=== PATIENT | male | born 1965 | race Caucasian/White ===

== ENCOUNTER 2021-10-04 09:09 | Inpatient (IN) | payer SELFPAY ==
[2021-10-04] MEDS ORDERED: Dexamethasone 10 MG/ML SDV IVPUSH ONE (09:30)
[2021-10-04] MEDS ORDERED: Albuterol/Ipratropium 3.0-0.5 MG/3 ML Neb Soln NEB ONE ×3 (09:30→16:24)
[2021-10-04] MEDS ORDERED: Sodium Chloride 0.9% 2.5 ML Syringe FLUSH PRN (09:30)
[2021-10-04] MEDS ORDERED: Sodium Chloride 0.9% 10 ML Syringe FLUSH PRN (09:30)
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
[2021-10-04] MEDS ORDERED: Aspirin 81 MG Tab.Chew PO ONE (09:33)
[2021-10-04] MEDS ORDERED: Nitroglycerin 2% Oint 1 GM UD Packet TOP ONE (09:33)
[2021-10-04] MEDS ORDERED: Furosemide 40 MG/4 ML VIAL IVPUSH ONE ×2 (09:33→16:21)
[2021-10-04 10:09] LABS: BLOOD UREA NITROGEN,BUN 23 mg/dL (7.0-18.0); CARBON DIOXIDE,CO2 35.4 mmol/L (21.0-32.0); CHLORIDE,CL 107 mmol/L (98-107); GLUCOSE RANDOM 85 mg/dL (74-106); POTASSIUM,K 4.8 mmol/L (3.5-5.1); SODIUM,NA 145 mmol/L (136-148)
[2021-10-04 10:17] LABS: CORONAVIRUS COVID-19 NAA NEGATIVE (NEGATIVE); INFLUENZA A NAA NEGATIVE (NEGATIVE); INFLUENZA B NAA NEGATIVE (NEGATIVE)
--- NOTE | 2021-10-04 10:47 | CR ---
Indication: Shortness of breath. Technique: Chest 1 view. Comparison: None. Findings/Impression: Cardiovascular and mediastinum: Cardiomegaly present. Pulmonary vasculature is within normal limits. No other signs of heart failure. Lungs and pleural space: Lungs are clear. No sign of infiltrate or mass. No sign of pleural effusion. No pneumothorax. No specific finding to explain shortness of breath. Bones and soft tissues: No acute findings. Dictated by Norberto Dunn MD @ 10/04/2021 10:45:06 AM (Electronically Signed)
--- NOTE | 2021-10-04 10:51 | CT ---
Indication: Shortness of breath. Technique: CT pulmonary angiogram. Coronal/sagittal reconstruction images. 100 cc of Isovue 370 IV. Comparison: None. Findings: There is no mass at the thoracic inlet. There is no pleural or pericardial effusion. Cardiomegaly. The main pulmonary artery is dilated, and measures 38 millimeters in dimension. Consider pulmonary arterial hypertension. The ascending thoracic aorta measures 42 millimeters, which is dilated. There is no evidence for an acute aortic syndrome. No displaced intimal calcification dissection flap is seen. No mass at the thoracic inlet. No pulmonary emboli. The study is technically adequate for interpretation no thoracic lymphadenopathy. The lung windows demonstrate no endobronchial mass. No resorptive atelectasis. No honeycomb formation. There is no suspicious pulmonary nodule. There is no acute airspace disease Evaluation the upper abdomen demonstrates no splenomegaly. No pancreatic duct dilation or glandular atrophy. Nodular liver surface, which can be seen with cirrhosis. See the surface overlying segment II. No dilation of intrahepatic biliary radicals. There are bilateral adrenal nodules, which likely represent lipid rich adrenal adenomas. For example, 16 millimeter lesion in the left adrenal gland on image 245 of series 401. These measure less than 10 Hounsfield units. No suspicious bone lesions are seen. There is osteophytic spurring at the endplates of the thoracic spine. Vertebral body heights are maintained on sagittal reconstruction images. Impression: 1. No pulmonary emboli. 2. No evidence on CT for right heart strain. No pulmonary infarct. 3. Dilated main pulmonary artery, which may indicate pulmonary arterial hypertension. 4. Fusiform dilation of the ascending thoracic aorta. No evidence for an acute aortic syndrome. Please note that all CT scans at this facility use dose modulation, iterative reconstruction, and/or weight-based dosing when appropriate to reduce radiation dose to as low as reasonably achievable. Dictated by Shemar Hobbs MD @ 10/04/2021 10:49:00 AM (Electronically Signed)
[2021-10-04] MEDS ORDERED: niCARdipine/Normal Saline 40 MG/200 ML BAG IV SCH (11:00)
[2021-10-04] MEDS ORDERED: Iopamidol 755 MG/ML 500 ML Multipack Bottle IVPUSH ONE (11:13)
[2021-10-04] MEDS: niCARdipine/Normal Saline 20 MG/200 ML BAG IV SCH ×2 (12:51→18:01)
--- NOTE | 2021-10-04 14:53 | PCM.HP.2 ---
H&P History of Present Illness - General Date of Service: 10/04/21 Admit Problem/Dx: Admission Diagnosis/Problem Admission Diagnosis/Problem Respiratory failure with hypoxia - History of Present Illness Initial Comments - Free Text/Narative: Zaheer Recinos is a 56-year-old morbidly obese male with a h/o HTN, COPD, noncompliance with medications who presented to the ED by private means due for shortness of breath. He says the dyspnea has been on for about 1 day. Patient reports has had a dry hacking cough. Patient denies any recent fevers, shakes, chills, nausea, vomiting, diarrhea, dysuria, frequency, urgency, melena, bright red blood per rectum, hematuria. Patient denies any increased swelling to his lower extremities but they reports that they have been swollen for approximately 1 month. He has not been vaccinated for COVID 19. 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 He admits to using some methamphetamine yesterday to try and stay awake. - Related Data Allergies/Adverse Reactions: Allergies Allergy/AdvReac Type Severity Reaction Status Date / Time No Known Allergies Allergy Verified 10/04/21 09:14 Home Medications: Home Meds . [No Known Home Meds] 10/01/14 [History] Past Medical History - Past Health History Medical/Surgical History: Denies Medical/Surgical History HEENT History: Reports: None Cardiovascular History: Reports: Hypertension Respiratory History: Reports: Asthma, SOB Musculoskeletal History: Reports: Fracture Psychiatric History: Reports: ADHD - Infectious Disease History Infectious Disease History: Reports: Chicken Pox - Past Surgical History GI Surgical History: Reports: Appendectomy Social & Family History - Family History Family Medical History: No Pertinent Family History - Tobacco Use Tobacco Use Status *Q: Former Tobacco User Years of Tobacco use: 40 Packs/Tins Daily: 2 Used Tobacco, but Quit: Yes Month/Year Tobacco Last Used: 10/2007 - Caffeine Use Caffeine Use: Reports: Coffee, Energy Drinks, Soda, Tea - Alcohol Use Days Per Week of Alcohol Use: 1 Number of Drinks Per Day: 2 Total Drinks Per Week: 2 - Recreational Drug Use Recreational Drug Use: Yes Recreational Drug Type: Reports: Methamphetamine H&P Review of Systems - Review of Systems: Review Of Systems: Comprehensive ROS is negative, except as noted in HPI. Exam - Exam Exam: See Below - Vital Signs Vital Signs: Last Vital Signs Temp 98.2 F 10/04/21 09:10 Pulse 93 10/04/21 13:34 Resp 18 10/04/21 13:34 BP 168/96 H 10/04/21 13:34 Pulse Ox 93 L 10/04/21 13:34 Weight: 350 lb - Exam Physical Exam Comments:: General: morbidly obese middle aged male. on a bipap. Drowsy. HEENT: NC, AT, PERRLA, EOMI. Short thick and supple neck. CVS: S1S2 appreciated. RRR tachycardic lungs: clear with no rales or wheezes pa: soft,non tender, bowel sounds present. Ext: no clubbing or cyanosis. lymphedema Neuro: strength is 5/5 bilaterally. sensation is intact. psych: stable mood and affect. - Patient Data Lab Results Last 24 hrs: Laboratory Results - last 24 hr 10/04/21 10/04/21 10/04/21 Range/Units 09:15 09:15 09:15 WBC 9.64 (4.0-11.0) K/uL RBC 5.75 (4.50-5.90) M/uL Hgb 16.0 (13.0-17.0) g/dL Hct 53.1 H (38.0-50.0) % MCV 92.3 (80.0-98.0) fL MCH 27.8 (27.0-32.0) pg MCHC 30.1 L (31.0-37.0) g/dL RDW Std Deviation 50.4 (28.0-62.0) fl RDW Coeff of Abel 15 (11.0-15.0) % Plt Count 236 (150-400) K/uL MPV 11.60 (7.40-12.00) fL Neut % (Auto) 73.1 (48.0-80.0) % Lymph % (Auto) 16.7 (16.0-40.0) % [place] % (Auto) 6.7 (0.0-15.0) % Eos % (Auto) 3.3 (0.0-7.0) % Baso % (Auto) 0.2 (0.0-1.5) % Neut # (Auto) 7.0 H (1.4-5.7) K/uL Lymph # (Auto) 1.6 (0.6-2.4) K/uL [place] # (Auto) 0.7 (0.0-0.8) K/uL Eos # (Auto) 0.3 (0.0-0.7) K/uL Baso # (Auto) 0.0 (0.0-0.1) K/uL Nucleated RBC % 0.0 /100WBC Nucleated RBCs # 0 K/uL D-Dimer, Quantitative 0.95 H (0.0-0.50) mg/L FEU ABG pH (7.35-7.45) ABG pCO2 (35-45) mmHG ABG pO2 (80-105) mmHG ABG HCO3 (22-26) mEq/L ABG Total CO2 (23-27) mmol/L ABG Base Excess (-2.0-3.0) Sodium 145 (136-148) mmol/L Potassium 4.8 (3.5-5.1) mmol/L Chloride 107 (98-107) mmol/L Carbon Dioxide 35.4 H (21.0-32.0) mmol/L BUN 23 H (7.0-18.0) mg/dL Creatinine 1.4 H (0.8-1.3) mg/dL Est Cr Clr Drug Dosing 64.67 mL/min Estimated GFR (MDRD) 52.4 ml/min Glucose 85 (74-106) mg/dL Calcium 8.6 (8.5-10.1) mg/dL Total Bilirubin 0.4 (0.2-1.0) mg/dL AST 32 (15-37) IU/L ALT 32 (14-63) IU/L Alkaline Phosphatase 94 (46-116) U/L Troponin I 0.054 (0.000-0.056) ng/mL B-Natriuretic Peptide (<100) PG/ML Total Protein 8.1 (6.4-8.2) g/dL Albumin 3.1 L (3.4-5.0) g/dL Globulin 5.0 H (2.6-4.0) g/dL Albumin/Globulin Ratio 0.6 L (0.9-1.6) TSH, Ultra Sensitive 1.48 (0.36-3.74) uIU/mL Urine Opiates Screen (NEGATIVE) Ur Oxycodone Screen (NEGATIVE) Urine Methadone Screen (NEGATIVE) Ur Barbiturates Screen (NEGATIVE) Ur Phencyclidine Scrn (NEGATIVE) Ur Amphetamine Screen (NEGATIVE) U Methamphetamines Scrn (NEGATIVE) U Benzodiazepines Scrn (NEGATIVE) U Cocaine Metab Screen (NEGATIVE) U Marijuana (THC) Screen (NEGATIVE) Ethyl Alcohol < 3.0 mg/dL Influenza Type A RNA (NEGATIVE) Influenza Type B RNA (NEGATIVE) SARS-CoV-2 RNA (HERRERA) (NEGATIVE) 10/04/21 10/04/21 10/04/21 Range/Units 09:15 09:15 10:18 WBC (4.0-11.0) K/uL RBC (4.50-5.90) M/uL Hgb (13.0-17.0) g/dL Hct (38.0-50.0) % MCV (80.0-98.0) fL MCH (27.0-32.0) pg MCHC (31.0-37.0) g/dL RDW Std Deviation (28.0-62.0) fl RDW Coeff of Abel (11.0-15.0) % Plt Count (150-400) K/uL MPV (7.40-12.00) fL Neut % (Auto) (48.0-80.0) % Lymph % (Auto) (16.0-40.0) % [place] % (Auto) (0.0-15.0) % Eos % (Auto) (0.0-7.0) % Baso % (Auto) (0.0-1.5) % Neut # (Auto) (1.4-5.7) K/uL Lymph # (Auto) (0.6-2.4) K/uL [place] # (Auto) (0.0-0.8) K/uL Eos # (Auto) (0.0-0.7) K/uL Baso # (Auto) (0.0-0.1) K/uL Nucleated RBC % /100WBC Nucleated RBCs # K/uL D-Dimer, Quantitative (0.0-0.50) mg/L FEU ABG pH (7.35-7.45) ABG pCO2 (35-45) mmHG ABG pO2 (80-105) mmHG ABG HCO3 (22-26) mEq/L ABG Total CO2 (23-27) mmol/L ABG Base Excess (-2.0-3.0) Sodium (136-148) mmol/L Potassium (3.5-5.1) mmol/L Chloride (98-107) mmol/L Carbon Dioxide (21.0-32.0) mmol/L BUN (7.0-18.0) mg/dL Creatinine (0.8-1.3) mg/dL Est Cr Clr Drug Dosing mL/min Estimated GFR (MDRD) ml/min Glucose (74-106) mg/dL Calcium (8.5-10.1) mg/dL Total Bilirubin (0.2-1.0) mg/dL AST (15-37) IU/L ALT (14-63) IU/L Alkaline Phosphatase (46-116) U/L Troponin I (0.000-0.056) ng/mL B-Natriuretic Peptide 123 H (<100) PG/ML Total Protein (6.4-8.2) g/dL Albumin (3.4-5.0) g/dL Globulin (2.6-4.0) g/dL Albumin/Globulin Ratio (0.9-1.6) TSH, Ultra Sensitive (0.36-3.74) uIU/mL Urine Opiates Screen NEGATIVE (NEGATIVE) Ur Oxycodone Screen NEGATIVE (NEGATIVE) Urine Methadone Screen NEGATIVE (NEGATIVE) Ur Barbiturates Screen NEGATIVE (NEGATIVE) Ur Phencyclidine Scrn NEGATIVE (NEGATIVE) Ur Amphetamine Screen POSITIVE (NEGATIVE) U Methamphetamines Scrn POSITIVE (NEGATIVE) U Benzodiazepines Scrn NEGATIVE (NEGATIVE) U Cocaine Metab Screen NEGATIVE (NEGATIVE) U Marijuana (THC) Screen NEGATIVE (NEGATIVE) Ethyl Alcohol mg/dL Influenza Type A RNA NEGATIVE (NEGATIVE) Influenza Type B RNA NEGATIVE (NEGATIVE) SARS-CoV-2 RNA (HERRERA) NEGATIVE (NEGATIVE) 10/04/21 10/04/21 Range/Units 11:17 11:55 WBC (4.0-11.0) K/uL RBC (4.50-5.90) M/uL Hgb (13.0-17.0) g/dL Hct (38.0-50.0) % MCV (80.0-98.0) fL MCH (27.0-32.0) pg MCHC (31.0-37.0) g/dL RDW Std Deviation (28.0-62.0) fl RDW Coeff of Abel (11.0-15.0) % Plt Count (150-400) K/uL MPV (7.40-12.00) fL Neut % (Auto) (48.0-80.0) % Lymph % (Auto) (16.0-40.0) % [place] % (Auto) (0.0-15.0) % Eos % (Auto) (0.0-7.0) % Baso % (Auto) (0.0-1.5) % Neut # (Auto) (1.4-5.7) K/uL Lymph # (Auto) (0.6-2.4) K/uL [place] # (Auto) (0.0-0.8) K/uL Eos # (Auto) (0.0-0.7) K/uL Baso # (Auto) (0.0-0.1) K/uL Nucleated RBC % /100WBC Nucleated RBCs # K/uL D-Dimer, Quantitative (0.0-0.50) mg/L FEU ABG pH 7.26 L (7.35-7.45) ABG pCO2 77 H (35-45) mmHG ABG pO2 79 L (80-105) mmHG ABG HCO3 34 H (22-26) mEq/L ABG Total CO2 30.9 H (23-27) mmol/L ABG Base Excess 4.0 H (-2.0-3.0) Sodium (136-148) mmol/L Potassium (3.5-5.1) mmol/L Chloride (98-107) mmol/L Carbon Dioxide (21.0-32.0) mmol/L BUN (7.0-18.0) mg/dL Creatinine (0.8-1.3) mg/dL Est Cr Clr Drug Dosing mL/min Estimated GFR (MDRD) ml/min Glucose (74-106) mg/dL Calcium (8.5-10.1) mg/dL Total Bilirubin (0.2-1.0) mg/dL AST (15-37) IU/L ALT (14-63) IU/L Alkaline Phosphatase (46-116) U/L Troponin I (0.000-0.056) ng/mL B-Natriuretic Peptide (<100) PG/ML Total Protein (6.4-8.2) g/dL Albumin (3.4-5.0) g/dL Globulin (2.6-4.0) g/dL Albumin/Globulin Ratio (0.9-1.6) TSH, Ultra Sensitive (0.36-3.74) uIU/mL Urine Opiates Screen (NEGATIVE) Ur Oxycodone Screen (NEGATIVE) Urine Methadone Screen (NEGATIVE) Ur Barbiturates Screen (NEGATIVE) Ur Phencyclidine Scrn (NEGATIVE) Ur Amphetamine Screen (NEGATIVE) U Methamphetamines Scrn (NEGATIVE) U Benzodiazepines Scrn (NEGATIVE) U Cocaine Metab Screen (NEGATIVE) U Marijuana (THC) Screen (NEGATIVE) Ethyl Alcohol mg/dL Influenza Type A RNA (NEGATIVE) Influenza Type B RNA (NEGATIVE) SARS-CoV-2 RNA (HERRERA) NEGATIVE (NEGATIVE) Result Diagrams: 10/04/21 09:15 10/04/21 09:15 Sepsis Event Note - Evaluation Sepsis Screening Result: No Definite Risk - Focused Exam Vital Signs: Vital Signs Temp Pulse Resp BP Pulse Ox 10/04/21 13:34 93 18 168/96 H 93 L 10/04/21 13:29 99 21 H 166/95 H 93 L 10/04/21 13:24 95 22 H 169/100 H 93 L 10/04/21 12:30 206/132 H 10/04/21 11:30 204/132 H 10/04/21 09:10 98.2 F 74 32 H 195/118 H 69 L - Problem List (1) Morbid obesity SNOMED Code(s): 577439061 ICD Code: E66.01 - MORBID (SEVERE) OBESITY DUE TO EXCESS CALORIES Status: Acute Current Visit: Yes (2) Acute respiratory failure with hypoxia and hypercarbia SNOMED Code(s): 253510849 ICD Code: J96.01 - ACUTE RESPIRATORY FAILURE WITH HYPOXIA; J96.02 - ACUTE RESPIRATORY FAILURE WITH HYPERCAPNIA Status: Acute Current Visit: Yes (3) Hypertensive emergency SNOMED Code(s): 284222195561302 ICD Code: I16.1 - HYPERTENSIVE EMERGENCY Status: Acute Current Visit: Yes (4) Methamphetamine abuse SNOMED Code(s): 269213098 ICD Code: F15.10 - OTHER STIMULANT ABUSE, UNCOMPLICATED Status: Acute Current Visit: Yes (5) CHF (congestive heart failure) SNOMED Code(s): 46617783 ICD Code: I50.9 - HEART FAILURE, UNSPECIFIED Status: Acute Current Visit: Yes (6) Obesity hypoventilation syndrome SNOMED Code(s): 67244463, 541178468 ICD Code: E66.2 - MORBID (SEVERE) OBESITY WITH ALVEOLAR HYPOVENTILATION Status: Acute Current Visit: Yes (7) Chronic hypercapnic respiratory failure Status: Acute Current Visit: Yes Problem List Initiated/Reviewed/Updated: Yes Orders Last 24hrs: Active Orders 24 hr Category Date Time Status Patient Status [ADT] Routine ADT 10/04/21 12:55 Active Cardiac Monitoring [RC] . DIRECTED Care 10/04/21 09:30 Active Pulse Oximetry [RC] ASDIRECTED Care 10/04/21 09:30 Active Sodium Chloride 0.9% [Saline Flush] Med 10/04/21 09:30 Active 10 ml FLUSH ASDIRECTED PRN Sodium Chloride 0.9% [Saline Flush] Med 10/04/21 09:30 Active 2.5 ml FLUSH ASDIRECTED PRN niCARdipine/Normal Saline [Cardene in NS 20 MG/200 ML] Med 10/04/21 12:40 Active 20 mg in 200 ml IV TITRATE Saline Lock Insert [OM.PC] Stat Oth 10/04/21 09:30 Ordered Medication Orders Nicardipine HCl (Cardene In Ns 20 Mg/200 Ml) 20 mg in 200 mls @ 50 mls/hr IV TITRATE GUNNER; Protocol Last Admin: 10/04/21 12:51 Dose: 50 mls/hr Documented by: CHADWICK Sodium Chloride (Sodium Chloride 0.9% 10 Ml Syringe) 10 ml FLUSH ASDIRECTED PRN PRN Reason: Keep Vein Open Last Admin: 10/04/21 09:46 Dose: 10 ml Documented by: CHADWICK Sodium Chloride (Sodium Chloride 0.9% 2.5 Ml Syringe) 2.5 ml FLUSH ASDIRECTED PRN PRN Reason: Keep Vein Open Last Admin: 10/04/21 09:48 Dose: 2.5 ml Documented by: CHADWICK Assessment/Plan Comment:: Acute on chronic respiratory failure with hypoxemia and hypercapnia multifactorial etiologies. Pt has underlying GANESH, obesity hypoventilation syndrome and possibly CHF Admit to the ICU for diuresis and oxygen management. Pt will be kept on a Bipap for now. Follow ABG's in am. His condition is complicated such that he will best be served by transfer to a tertiary center where he can have a multi specialty approach by cardiology and pulmonology Congestive heart failure Pt likely has diastolic HF but may have a combination of systolic dysfunction as well. Pt will need a 2 DECHO. will start him on IV lasix Q12hrs for now Morbid obesity Respiratory acidosis NIPPV for now. 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 Substance abuse methamphetamine. Pt was counselled regarding substance use. - Mortality Measure Prognosis:: Poor
[2021-10-04] MEDS: Albuterol/Ipratropium 3.0-0.5 MG/3 ML Neb Soln NEB SCH ×2 (22:03→22:45)
[2021-10-04] MEDS: Furosemide 40 MG/4 ML VIAL IVPUSH SCH (22:04)
[2021-10-04] MEDS: Enoxaparin 40 MG/0.4 ML Syringe SUBCUT SCH (22:15)
--- NOTE | 2021-10-04 23:39 | PN ---
THC Physician - Brief Progress [id number]/05/2021 23:32[facility] Sandra Miguel, TEO - DERIK (CHRISTINA) - DERIK FREEMANGOODLEMUELLONI PEDRODate of Service 10/04/2021 23:32HPI/Even ts of Note eICU admission noteActive problems:1. Acute hypoxemic/hypercapnic respiratory failure2. Hypertensive emergency3. Acute on chronic diastolic heart failure4. Acute exacerbation of COPD5. C lass III obesity-BMI 47.5HPI:History obtained from revision of medical [id number] male presen yaima to the hospital with shortness of breath, oxygen saturation 69% in emergency department ABG showe d hypoxic and hypercapnic respiratory failure with respiratory acidosis. Systolic blood pressure was over 190 mmHg. Patient was given Lasix, started on nicardipine drip, BiPAP. Chest x-ray showed pul monary venous congestion. CTA chest showed no evidence of pulmonary embolism. Patient is being admi tted to the ICU for closer monitoring and treatment. Urine drug screen positive for methamphetamine. Vitals:Initial vitals in emergency department: BP 195/118, P 93, RR 32, SPO2 69%Follow-up vitals: BP 139/73, P 95, SPO2 98% on BiPAP with 60% [id number] recommendations:-Continue current treatment plan as per primary hospital medicine team: Blood pressure control nicardipine drip titrate for target systo lic blood pressure less than 160, initiate oral antihypertensives as per primary team, continue Lasix , continue BiPAP, follow-up ABG, echocardiogram, bronchodilators, check HbA1c and lipid profile, DVT prophylaxis-enoxaparin. Counseling regarding drug use, weight loss and diet.-Thank you for allowing us to participate in the care of your patient.Interventions Major-Hypertension - evaluation and manag ement, Respiratory failure - evaluation and management
[2021-10-05] MEDS: Albuterol/Ipratropium 3.0-0.5 MG/3 ML Neb Soln NEB SCH ×10 (00:46→22:10)
[2021-10-05 08:53] LABS: CARBON DIOXIDE,CO2 35.3 mmol/L (21.0-32.0); POTASSIUM,K 4.1 mmol/L (3.5-5.1)
[2021-10-05] MEDS: Furosemide 40 MG/4 ML VIAL IVPUSH SCH ×2 (09:39→20:29)
[2021-10-05] MEDS: Enoxaparin 40 MG/0.4 ML Syringe SUBCUT SCH ×2 (09:40→20:29)
--- NOTE | 2021-10-05 18:39 | PCM.PN ---
- General Info Date of Service: 10/05/21 - Patient Data Vitals - Most Recent: Last Vital Signs Temp 36.2 C 10/05/21 16:00 Pulse 96 10/04/21 23:19 Resp 16 10/05/21 18:00 BP 152/86 H 10/05/21 18:00 Pulse Ox 92 L 10/05/21 18:00 Weight - Most Recent: 152.1 kg I&O - Last 24 Hours: Intake & Output 10/05/21 10/05/21 10/05/21 06:59 14:59 22:59 Intake Total 100 750 Output Total 0 Balance 100 750 Lab Results Last 24 Hours: Laboratory Results - last 24 hr 10/04/21 10/05/21 10/05/21 Range/Units 22:12 06:00 08:13 WBC 11.61 H (4.0-11.0) K/uL RBC 5.39 (4.50-5.90) M/uL Hgb 15.1 (13.0-17.0) g/dL Hct 49.6 (38.0-50.0) % MCV 92.0 (80.0-98.0) fL MCH 28.0 (27.0-32.0) pg MCHC 30.4 L (31.0-37.0) g/dL RDW Std Deviation 49.7 (28.0-62.0) fl RDW Coeff of Abel 15 (11.0-15.0) % Plt Count 192 (150-400) K/uL MPV 11.00 (7.40-12.00) fL Neut % (Auto) 81.6 H (48.0-80.0) % Lymph % (Auto) 10.5 L (16.0-40.0) % [place] % (Auto) 7.8 (0.0-15.0) % Eos % (Auto) 0.0 (0.0-7.0) % Baso % (Auto) 0.1 (0.0-1.5) % Neut # (Auto) 9.5 H (1.4-5.7) K/uL Lymph # (Auto) 1.2 (0.6-2.4) K/uL [place] # (Auto) 0.9 H (0.0-0.8) K/uL Eos # (Auto) 0.0 (0.0-0.7) K/uL Baso # (Auto) 0.0 (0.0-0.1) K/uL Nucleated RBC % 0.0 /100WBC Nucleated RBCs # 0 K/uL ABG pH 7.32 L (7.35-7.45) ABG pCO2 76 H (35-45) mmHG ABG pO2 74 L (80-105) mmHG ABG HCO3 39 H (22-26) mEq/L ABG Total CO2 41 H (23-27) mmol/L ABG Base Excess 9.0 H (-2.0-3.0) VBG pH 7.28 L (7.31-7.41) VBG pCO2 84 H (41-51) mmHG VBG pO2 < 30 mmHG VBG HCO3 39 H (23-28) mEq/L VBG Total CO2 36 H (24-29) mmol/L VBG Base Excess 8.4 H (-2.0-3.0) Sodium (136-148) mmol/L Potassium (3.5-5.1) mmol/L Chloride (98-107) mmol/L Carbon Dioxide (21.0-32.0) mmol/L BUN (7.0-18.0) mg/dL Creatinine (0.8-1.3) mg/dL Est Cr Clr Drug Dosing mL/min Estimated GFR (MDRD) ml/min Glucose (74-106) mg/dL Calcium (8.5-10.1) mg/dL Total Bilirubin (0.2-1.0) mg/dL AST (15-37) IU/L ALT (14-63) IU/L Alkaline Phosphatase (46-116) U/L Total Protein (6.4-8.2) g/dL Albumin (3.4-5.0) g/dL Globulin (2.6-4.0) g/dL Albumin/Globulin Ratio (0.9-1.6) 10/05/21 Range/Units 08:13 WBC (4.0-11.0) K/uL RBC (4.50-5.90) M/uL Hgb (13.0-17.0) g/dL Hct (38.0-50.0) % MCV (80.0-98.0) fL MCH (27.0-32.0) pg MCHC (31.0-37.0) g/dL RDW Std Deviation (28.0-62.0) fl RDW Coeff of Abel (11.0-15.0) % Plt Count (150-400) K/uL MPV (7.40-12.00) fL Neut % (Auto) (48.0-80.0) % Lymph % (Auto) (16.0-40.0) % [place] % (Auto) (0.0-15.0) % Eos % (Auto) (0.0-7.0) % Baso % (Auto) (0.0-1.5) % Neut # (Auto) (1.4-5.7) K/uL Lymph # (Auto) (0.6-2.4) K/uL [place] # (Auto) (0.0-0.8) K/uL Eos # (Auto) (0.0-0.7) K/uL Baso # (Auto) (0.0-0.1) K/uL Nucleated RBC % /100WBC Nucleated RBCs # K/uL ABG pH (7.35-7.45) ABG pCO2 (35-45) mmHG ABG pO2 (80-105) mmHG ABG HCO3 (22-26) mEq/L ABG Total CO2 (23-27) mmol/L ABG Base Excess (-2.0-3.0) VBG pH (7.31-7.41) VBG pCO2 (41-51) mmHG VBG pO2 mmHG VBG HCO3 (23-28) mEq/L VBG Total CO2 (24-29) mmol/L VBG Base Excess (-2.0-3.0) Sodium 143 (136-148) mmol/L Potassium 4.1 (3.5-5.1) mmol/L Chloride 102 (98-107) mmol/L Carbon Dioxide 35.3 H (21.0-32.0) mmol/L BUN 27 H (7.0-18.0) mg/dL Creatinine 1.6 H (0.8-1.3) mg/dL Est Cr Clr Drug Dosing 56.58 mL/min Estimated GFR (MDRD) 44.9 ml/min Glucose 98 (74-106) mg/dL Calcium 8.4 L (8.5-10.1) mg/dL Total Bilirubin 0.5 (0.2-1.0) mg/dL AST 21 (15-37) IU/L ALT 31 (14-63) IU/L Alkaline Phosphatase 72 (46-116) U/L Total Protein 7.0 (6.4-8.2) g/dL Albumin 2.9 L (3.4-5.0) g/dL Globulin 4.1 H (2.6-4.0) g/dL Albumin/Globulin Ratio 0.7 L (0.9-1.6) Med Orders - Current: Current Medications Albuterol/Ipratropium (Albuterol/Ipratropium 3.0-0.5 Mg/3 Ml Neb Soln) 3 ml NEB Q4HRRT GUNENR Last Admin: 10/05/21 18:27 Dose: 3 ml Documented by: Enoxaparin Sodium (Enoxaparin 40 Mg/0.4 Ml Syringe) 40 mg SUBCUT Q12HR GUNNER Last Admin: 10/05/21 09:40 Dose: 40 mg Documented by: Furosemide (Furosemide 40 Mg/4 Ml Vial) 40 mg IVPUSH Q12HR GUNNER Last Admin: 10/05/21 09:39 Dose: 40 mg Documented by: Nicardipine HCl (Cardene In Ns 20 Mg/200 Ml) 20 mg in 200 mls @ 50 mls/hr IV TITRATE GUNNER; Protocol Last Admin: 10/04/21 18:01 Dose: 50 mls/hr Documented by: Sodium Chloride (Sodium Chloride 0.9% 10 Ml Syringe) 10 ml FLUSH ASDIRECTED PRN PRN Reason: Keep Vein Open Last Admin: 10/04/21 09:46 Dose: 10 ml Documented by: Sodium Chloride (Sodium Chloride 0.9% 2.5 Ml Syringe) 2.5 ml FLUSH ASDIRECTED PRN PRN Reason: Keep Vein Open Last Admin: 10/04/21 09:48 Dose: 2.5 ml Documented by: Discontinued Medications Albuterol/Ipratropium (Albuterol/Ipratropium 3.0-0.5 Mg/3 Ml Neb Soln) 3 ml NEB ONETIME ONE Stop: 10/04/21 09:31 Last Admin: 10/04/21 09:39 Dose: 3 ml Documented by: Albuterol/Ipratropium (Albuterol/Ipratropium 3.0-0.5 Mg/3 Ml Neb Soln) 3 ml NEB ONETIME ONE Stop: 10/04/21 16:25 Last Admin: 10/04/21 17:32 Dose: 3 ml Documented by: Albuterol/Ipratropium (Albuterol/Ipratropium 3.0-0.5 Mg/3 Ml Neb Soln) 3 ml NEB ONETIME ONE Stop: 10/04/21 16:25 Last Admin: 10/04/21 17:32 Dose: 3 ml Documented by: Albuterol/Ipratropium (Albuterol/Ipratropium 3.0-0.5 Mg/3 Ml Neb Soln) 3 ml NEB Q2H GUNNER Last Admin: 10/05/21 11:23 Dose: Not Given Documented by: Aspirin (Aspirin 81 Mg Tab.Chew) 324 mg PO ONETIME ONE Stop: 10/04/21 09:34 Last Admin: 10/04/21 09:45 Dose: 324 mg Documented by: Dexamethasone (Dexamethasone 10 Mg/Ml Sdv) 10 mg IVPUSH ONETIME ONE Stop: 10/04/21 09:31 Last Admin: 10/04/21 09:46 Dose: 10 mg Documented by: Furosemide (Furosemide 40 Mg/4 Ml Vial) 40 mg IVPUSH NOW ONE Stop: 10/04/21 09:34 Last Admin: 10/04/21 09:47 Dose: 40 mg Documented by: Furosemide (Furosemide 40 Mg/4 Ml Vial) 80 mg IVPUSH NOW ONE Stop: 10/04/21 16:22 Last Admin: 10/04/21 17:35 Dose: 80 mg Documented by: Nicardipine HCl (Cardenein Ns 40 Mg/200 Ml) 40 mg in 200 mls @ 25 mls/hr IV TITRATE GUNNER; Protocol Iopamidol (Iopamidol 755 Mg/Ml 500 Ml Multipack Bottle) 100 ml IVPUSH ONETIME ONE Stop: 10/04/21 11:14 Last Admin: 10/04/21 11:14 Dose: 100 ml Documented by: Nitroglycerin (Nitroglycerin 2% Oint 1 Gm Ud Packet) 1 gm TOP ONETIME ONE Stop: 10/04/21 09:34 Last Admin: 10/04/21 09:40 Dose: 1 gm Documented by: - Exam General: Alert, Oriented Lungs: Clear to Auscultation, Normal Respiratory Effort Cardiovascular: Regular Rate, Regular Rhythm GI/Abdominal Exam: Soft, Non-Tender Extremities: No Pedal Edema (+1) Skin: Warm, Dry, Intact Neurological: No New Focal Deficit Psy/Mental Status: Alert - Patient Data Lab Results Last 24 hrs: Laboratory Results - last 24 hr 10/04/21 10/05/21 10/05/21 Range/Units 22:12 06:00 08:13 WBC 11.61 H (4.0-11.0) K/uL RBC 5.39 (4.50-5.90) M/uL Hgb 15.1 (13.0-17.0) g/dL Hct 49.6 (38.0-50.0) % MCV 92.0 (80.0-98.0) fL MCH 28.0 (27.0-32.0) pg MCHC 30.4 L (31.0-37.0) g/dL RDW Std Deviation 49.7 (28.0-62.0) fl RDW Coeff of Abel 15 (11.0-15.0) % Plt Count 192 (150-400) K/uL MPV 11.00 (7.40-12.00) fL Neut % (Auto) 81.6 H (48.0-80.0) % Lymph % (Auto) 10.5 L (16.0-40.0) % [place] % (Auto) 7.8 (0.0-15.0) % Eos % (Auto) 0.0 (0.0-7.0) % Baso % (Auto) 0.1 (0.0-1.5) % Neut # (Auto) 9.5 H (1.4-5.7) K/uL Lymph # (Auto) 1.2 (0.6-2.4) K/uL [place] # (Auto) 0.9 H (0.0-0.8) K/uL Eos # (Auto) 0.0 (0.0-0.7) K/uL Baso # (Auto) 0.0 (0.0-0.1) K/uL Nucleated RBC % 0.0 /100WBC Nucleated RBCs # 0 K/uL ABG pH 7.32 L (7.35-7.45) ABG pCO2 76 H (35-45) mmHG ABG pO2 74 L (80-105) mmHG ABG HCO3 39 H (22-26) mEq/L ABG Total CO2 41 H (23-27) mmol/L ABG Base Excess 9.0 H (-2.0-3.0) VBG pH 7.28 L (7.31-7.41) VBG pCO2 84 H (41-51) mmHG VBG pO2 < 30 mmHG VBG HCO3 39 H (23-28) mEq/L VBG Total CO2 36 H (24-29) mmol/L VBG Base Excess 8.4 H (-2.0-3.0) Sodium (136-148) mmol/L Potassium (3.5-5.1) mmol/L Chloride (98-107) mmol/L Carbon Dioxide (21.0-32.0) mmol/L BUN (7.0-18.0) mg/dL Creatinine (0.8-1.3) mg/dL Est Cr Clr Drug Dosing mL/min Estimated GFR (MDRD) ml/min Glucose (74-106) mg/dL Calcium (8.5-10.1) mg/dL Total Bilirubin (0.2-1.0) mg/dL AST (15-37) IU/L ALT (14-63) IU/L Alkaline Phosphatase (46-116) U/L Total Protein (6.4-8.2) g/dL Albumin (3.4-5.0) g/dL Globulin (2.6-4.0) g/dL Albumin/Globulin Ratio (0.9-1.6) 10/05/21 Range/Units 08:13 WBC (4.0-11.0) K/uL RBC (4.50-5.90) M/uL Hgb (13.0-17.0) g/dL Hct (38.0-50.0) % MCV (80.0-98.0) fL MCH (27.0-32.0) pg MCHC (31.0-37.0) g/dL RDW Std Deviation (28.0-62.0) fl RDW Coeff of Abel (11.0-15.0) % Plt Count (150-400) K/uL MPV (7.40-12.00) fL Neut % (Auto) (48.0-80.0) % Lymph % (Auto) (16.0-40.0) % [place] % (Auto) (0.0-15.0) % Eos % (Auto) (0.0-7.0) % Baso % (Auto) (0.0-1.5) % Neut # (Auto) (1.4-5.7) K/uL Lymph # (Auto) (0.6-2.4) K/uL [place] # (Auto) (0.0-0.8) K/uL Eos # (Auto) (0.0-0.7) K/uL Baso # (Auto) (0.0-0.1) K/uL Nucleated RBC % /100WBC Nucleated RBCs # K/uL ABG pH (7.35-7.45) ABG pCO2 (35-45) mmHG ABG pO2 (80-105) mmHG ABG HCO3 (22-26) mEq/L ABG Total CO2 (23-27) mmol/L ABG Base Excess (-2.0-3.0) VBG pH (7.31-7.41) VBG pCO2 (41-51) mmHG VBG pO2 mmHG VBG HCO3 (23-28) mEq/L VBG Total CO2 (24-29) mmol/L VBG Base Excess (-2.0-3.0) Sodium 143 (136-148) mmol/L Potassium 4.1 (3.5-5.1) mmol/L Chloride 102 (98-107) mmol/L Carbon Dioxide 35.3 H (21.0-32.0) mmol/L BUN 27 H (7.0-18.0) mg/dL Creatinine 1.6 H (0.8-1.3) mg/dL Est Cr Clr Drug Dosing 56.58 mL/min Estimated GFR (MDRD) 44.9 ml/min Glucose 98 (74-106) mg/dL Calcium 8.4 L (8.5-10.1) mg/dL Total Bilirubin 0.5 (0.2-1.0) mg/dL AST 21 (15-37) IU/L ALT 31 (14-63) IU/L Alkaline Phosphatase 72 (46-116) U/L Total Protein 7.0 (6.4-8.2) g/dL Albumin 2.9 L (3.4-5.0) g/dL Globulin 4.1 H (2.6-4.0) g/dL Albumin/Globulin Ratio 0.7 L (0.9-1.6) Result Diagrams: 10/05/21 08:13 10/05/21 08:13 Sepsis Event Note - Evaluation Sepsis Screening Result: No Definite Risk - Focused Exam Vital Signs: Vital Signs Temp Resp BP Pulse Ox 10/05/21 18:00 16 152/86 H 92 L 10/05/21 17:00 20 130/71 94 L 10/05/21 16:00 36.2 C 21 H 134/33 L 94 L 10/05/21 15:00 20 145/88 H 90 L 10/05/21 14:00 22 H 145/91 H 92 L 10/05/21 13:00 21 H 163/101 H 93 L 10/05/21 12:00 36.0 C L 22 H 163/94 H 96 10/05/21 11:00 21 H 141/86 H 94 L 10/05/21 10:00 31 H 152/89 H 95 10/05/21 09:00 21 H 165/93 H 91 L 10/05/21 08:00 36.2 C 23 H 154/85 H 93 L 10/05/21 07:00 27 H 132/67 93 L - Problem List & Annotations (1) Acute respiratory failure with hypoxia and hypercarbia SNOMED Code(s): 923137518 Code(s): J96.01 - ACUTE RESPIRATORY FAILURE WITH HYPOXIA; J96.02 - ACUTE RESPIRATORY FAILURE WITH HYPERCAPNIA Status: Acute Current Visit: Yes (2) CHF (congestive heart failure) SNOMED Code(s): 31945232 Code(s): I50.9 - HEART FAILURE, UNSPECIFIED Status: Acute Current Visit: Yes (3) Chronic hypercapnic respiratory failure Status: Acute Current Visit: Yes (4) Methamphetamine abuse SNOMED Code(s): 939268362 Code(s): F15.10 - OTHER STIMULANT ABUSE, UNCOMPLICATED Status: Acute Current Visit: Yes (5) Morbid obesity SNOMED Code(s): 436552798 Code(s): E66.01 - MORBID (SEVERE) OBESITY DUE TO EXCESS CALORIES Status: Acute Current Visit: Yes - Problem List Review Problem List Initiated/Reviewed/Updated: Yes - My Orders Last 24 Hours: My Active Orders 10/05/21 Lunch Fluid Restriction [DIET] 10/05/21 14:00 Albuterol/Ipratropium [DuoNeb 3.0-0.5 MG/3 ML] 3 ml NEB Q4HRRT 10/05/21 Dinner Heart Healthy Diet [DIET] - Plan Plan:: Acute on chronic respiratory failure with hypoxemia and hypercapnia multifactorial etiologies. Pt has underlying GANESH, obesity hypoventilation syndrome and possibly CHF patient is more alert today and symptoms are improving, He is able to sit up and talk with me without any oxygen and is satting 88%. at this time do not think emergent transfer is necessary Congestive heart failure Pt likely has diastolic HF but may have a combination of systolic dysfunction as well. echocardiogram ordered will continue IV lasix Q12hrs for now Substance abuse methamphetamine. Pt was counselled regarding substance use.
[2021-10-06] MEDS: Albuterol/Ipratropium 3.0-0.5 MG/3 ML Neb Soln NEB SCH ×6 (01:33→22:37)
[2021-10-06 08:11] LABS: CARBON DIOXIDE,CO2 36.6 mmol/L (21.0-32.0); POTASSIUM,K 3.9 mmol/L (3.5-5.1)
[2021-10-06] MEDS: Furosemide 40 MG/4 ML VIAL IVPUSH SCH ×2 (09:22→20:16)
[2021-10-06] MEDS: Sodium Chloride 0.65% Nasal Spray 45 ML Bottle NAS PRN (09:22)
[2021-10-06] MEDS: Enoxaparin 40 MG/0.4 ML Syringe SUBCUT SCH ×2 (09:22→20:16)
--- NOTE | 2021-10-06 14:19 | PCM.PN ---
- General Info Date of Service: 10/06/21 - Review of Systems Systems Review Comment:: reports shortness of breath improving - Patient Data Vitals - Most Recent: Last Vital Signs Temp 36.4 C 10/06/21 04:00 Pulse 96 10/04/21 23:19 Resp 25 H 10/06/21 06:00 BP 132/102 H 10/06/21 06:00 Pulse Ox 95 10/06/21 06:00 Weight - Most Recent: 161.3 kg I&O - Last 24 Hours: Intake & Output 10/05/21 10/06/21 10/06/21 22:59 06:59 14:59 Intake Total 750 1150 Output Total 0 Balance 750 1150 Lab Results Last 24 Hours: Laboratory Results - last 24 hr 10/06/21 10/06/21 Range/Units 07:45 07:45 WBC 9.78 (4.0-11.0) K/uL RBC 5.47 (4.50-5.90) M/uL Hgb 14.9 (13.0-17.0) g/dL Hct 50.2 H (38.0-50.0) % MCV 91.8 (80.0-98.0) fL MCH 27.2 (27.0-32.0) pg MCHC 29.7 L (31.0-37.0) g/dL RDW Std Deviation 50.7 (28.0-62.0) fl RDW Coeff of Abel 15 (11.0-15.0) % Plt Count 183 (150-400) K/uL MPV 11.00 (7.40-12.00) fL Neut % (Auto) 74.0 (48.0-80.0) % Lymph % (Auto) 17.0 (16.0-40.0) % [place] % (Auto) 7.6 (0.0-15.0) % Eos % (Auto) 1.2 (0.0-7.0) % Baso % (Auto) 0.2 (0.0-1.5) % Neut # (Auto) 7.2 H (1.4-5.7) K/uL Lymph # (Auto) 1.7 (0.6-2.4) K/uL [place] # (Auto) 0.7 (0.0-0.8) K/uL Eos # (Auto) 0.1 (0.0-0.7) K/uL Baso # (Auto) 0.0 (0.0-0.1) K/uL Nucleated RBC % 0.0 /100WBC Nucleated RBCs # 0 K/uL Sodium 140 (136-148) mmol/L Potassium 3.9 (3.5-5.1) mmol/L Chloride 100 (98-107) mmol/L Carbon Dioxide 36.6 H (21.0-32.0) mmol/L BUN 33 H (7.0-18.0) mg/dL Creatinine 1.5 H (0.8-1.3) mg/dL Est Cr Clr Drug Dosing 60.36 mL/min Estimated GFR (MDRD) 48.4 ml/min Glucose 92 (74-106) mg/dL Calcium 8.5 (8.5-10.1) mg/dL Med Orders - Current: Current Medications Albuterol/Ipratropium (Albuterol/Ipratropium 3.0-0.5 Mg/3 Ml Neb Soln) 3 ml NEB Q4HRRT GUNNER Last Admin: 10/06/21 13:08 Dose: 3 ml Documented by: Enoxaparin Sodium (Enoxaparin 40 Mg/0.4 Ml Syringe) 40 mg SUBCUT Q12HR GUNNER Last Admin: 10/06/21 09:22 Dose: 40 mg Documented by: Furosemide (Furosemide 40 Mg/4 Ml Vial) 40 mg IVPUSH Q12HR GUNNER Last Admin: 10/06/21 09:22 Dose: 40 mg Documented by: Nicardipine HCl (Cardene In Ns 20 Mg/200 Ml) 20 mg in 200 mls @ 50 mls/hr IV TITRATE GUNNER; Protocol Last Admin: 10/04/21 18:01 Dose: 50 mls/hr Documented by: Sodium Chloride (Sodium Chloride 0.9% 10 Ml Syringe) 10 ml FLUSH ASDIRECTED PRN PRN Reason: Keep Vein Open Last Admin: 10/04/21 09:46 Dose: 10 ml Documented by: Sodium Chloride (Sodium Chloride 0.9% 2.5 Ml Syringe) 2.5 ml FLUSH ASDIRECTED PRN PRN Reason: Keep Vein Open Last Admin: 10/04/21 09:48 Dose: 2.5 ml Documented by: Sodium Chloride (Sodium Chloride 0.65% Nasal [place] 45 Ml Bottle) 0 ml ASCENCION Q2H PRN PRN Reason: Dryness Last Admin: 10/06/21 09:22 Dose: 2 spray Documented by: Discontinued Medications Albuterol/Ipratropium (Albuterol/Ipratropium 3.0-0.5 Mg/3 Ml Neb Soln) 3 ml NEB ONETIME ONE Stop: 10/04/21 09:31 Last Admin: 10/04/21 09:39 Dose: 3 ml Documented by: Albuterol/Ipratropium (Albuterol/Ipratropium 3.0-0.5 Mg/3 Ml Neb Soln) 3 ml NEB ONETIME ONE Stop: 10/04/21 16:25 Last Admin: 10/04/21 17:32 Dose: 3 ml Documented by: Albuterol/Ipratropium (Albuterol/Ipratropium 3.0-0.5 Mg/3 Ml Neb Soln) 3 ml NEB ONETIME ONE Stop: 10/04/21 16:25 Last Admin: 10/04/21 17:32 Dose: 3 ml Documented by: Albuterol/Ipratropium (Albuterol/Ipratropium 3.0-0.5 Mg/3 Ml Neb Soln) 3 ml NEB Q2H GUNNER Last Admin: 10/05/21 11:23 Dose: Not Given Documented by: Aspirin (Aspirin 81 Mg Tab.Chew) 324 mg PO ONETIME ONE Stop: 10/04/21 09:34 Last Admin: 10/04/21 09:45 Dose: 324 mg Documented by: Dexamethasone (Dexamethasone 10 Mg/Ml Sdv) 10 mg IVPUSH ONETIME ONE Stop: 10/04/21 09:31 Last Admin: 10/04/21 09:46 Dose: 10 mg Documented by: Furosemide (Furosemide 40 Mg/4 Ml Vial) 40 mg IVPUSH NOW ONE Stop: 10/04/21 09:34 Last Admin: 10/04/21 09:47 Dose: 40 mg Documented by: Furosemide (Furosemide 40 Mg/4 Ml Vial) 80 mg IVPUSH NOW ONE Stop: 10/04/21 16:22 Last Admin: 10/04/21 17:35 Dose: 80 mg Documented by: Nicardipine HCl (Cardenein Ns 40 Mg/200 Ml) 40 mg in 200 mls @ 25 mls/hr IV TITRATE GUNNER; Protocol Iopamidol (Iopamidol 755 Mg/Ml 500 Ml Multipack Bottle) 100 ml IVPUSH ONETIME ONE Stop: 10/04/21 11:14 Last Admin: 10/04/21 11:14 Dose: 100 ml Documented by: Nitroglycerin (Nitroglycerin 2% Oint 1 Gm Ud Packet) 1 gm TOP ONETIME ONE Stop: 10/04/21 09:34 Last Admin: 10/04/21 09:40 Dose: 1 gm Documented by: - Exam General: Alert, Oriented Lungs: Clear to Auscultation, Normal Respiratory Effort Cardiovascular: Regular Rate, Regular Rhythm GI/Abdominal Exam: Soft, Non-Tender Extremities: Non-Tender, Pedal Edema (+1) Skin: Warm, Dry, Intact Neurological: No New Focal Deficit - Patient Data Lab Results Last 24 hrs: Laboratory Results - last 24 hr 10/06/21 10/06/21 Range/Units 07:45 07:45 WBC 9.78 (4.0-11.0) K/uL RBC 5.47 (4.50-5.90) M/uL Hgb 14.9 (13.0-17.0) g/dL Hct 50.2 H (38.0-50.0) % MCV 91.8 (80.0-98.0) fL MCH 27.2 (27.0-32.0) pg MCHC 29.7 L (31.0-37.0) g/dL RDW Std Deviation 50.7 (28.0-62.0) fl RDW Coeff of Abel 15 (11.0-15.0) % Plt Count 183 (150-400) K/uL MPV 11.00 (7.40-12.00) fL Neut % (Auto) 74.0 (48.0-80.0) % Lymph % (Auto) 17.0 (16.0-40.0) % [place] % (Auto) 7.6 (0.0-15.0) % Eos % (Auto) 1.2 (0.0-7.0) % Baso % (Auto) 0.2 (0.0-1.5) % Neut # (Auto) 7.2 H (1.4-5.7) K/uL Lymph # (Auto) 1.7 (0.6-2.4) K/uL [place] # (Auto) 0.7 (0.0-0.8) K/uL Eos # (Auto) 0.1 (0.0-0.7) K/uL Baso # (Auto) 0.0 (0.0-0.1) K/uL Nucleated RBC % 0.0 /100WBC Nucleated RBCs # 0 K/uL Sodium 140 (136-148) mmol/L Potassium 3.9 (3.5-5.1) mmol/L Chloride 100 (98-107) mmol/L Carbon Dioxide 36.6 H (21.0-32.0) mmol/L BUN 33 H (7.0-18.0) mg/dL Creatinine 1.5 H (0.8-1.3) mg/dL Est Cr Clr Drug Dosing 60.36 mL/min Estimated GFR (MDRD) 48.4 ml/min Glucose 92 (74-106) mg/dL Calcium 8.5 (8.5-10.1) mg/dL Result Diagrams: 10/06/21 07:45 10/06/21 07:45 Sepsis Event Note - Evaluation Sepsis Screening Result: No Definite Risk - Focused Exam Vital Signs: Vital Signs Temp Resp BP Pulse Ox 10/06/21 06:00 25 H 132/102 H 95 10/06/21 05:00 20 122/79 96 10/06/21 04:00 36.4 C 20 125/56 L 93 L 10/06/21 03:00 21 H 108/81 97 - Problem List & Annotations (1) Acute respiratory failure with hypoxia and hypercarbia SNOMED Code(s): 393537028 Code(s): J96.01 - ACUTE RESPIRATORY FAILURE WITH HYPOXIA; J96.02 - ACUTE RESPIRATORY FAILURE WITH HYPERCAPNIA Status: Acute Current Visit: Yes (2) CHF (congestive heart failure) SNOMED Code(s): 70481086 Code(s): I50.9 - HEART FAILURE, UNSPECIFIED Status: Acute Current Visit: Yes (3) Chronic hypercapnic respiratory failure Status: Acute Current Visit: Yes (4) Methamphetamine abuse SNOMED Code(s): 785908186 Code(s): F15.10 - OTHER STIMULANT ABUSE, UNCOMPLICATED Status: Acute C urrent Visit: Yes (5) Morbid obesity SNOMED Code(s): 654755035 Code(s): E66.01 - MORBID (SEVERE) OBESITY DUE TO EXCESS CALORIES Status: Acute Current Visit: Yes - Problem List Review Problem List Initiated/Reviewed/Updated: Yes - My Orders Last 24 Hours: My Active Orders 10/05/21 14:00 Albuterol/Ipratropium [DuoNeb 3.0-0.5 MG/3 ML] 3 ml NEB Q4HRRT 10/05/21 Dinner Heart Healthy Diet [DIET] 10/06/21 18:40 Echo Comp wo Cont [US] Routine - Plan Plan:: Acute on chronic respiratory failure with hypoxemia and hypercapnia likely from GANESH, and CHF Congestive heart failure continue IV lasix, patient has not been complaint with allowing nurses to monitor output. Did educate on need to measure urine output, Echocardiogram pending Will continue NC while awake and BIPAP while sleeping.
--- NOTE | 2021-10-06 19:42 | PN ---
[facility] Physician - Brief Progress PercEZDODEWUG90/07/2021 19:33[facility], [place] - KEVINN (CHRISTINA) - KEVINN LONI BUSTOSDate of Service 10/06/2021 19:33HPI/Even ts of Note 56 yo M originally admitted for hypoxic hypercapnic respiratory failure that responded wel l to IV Lasix and BiPAP. He also had hypertensive emergency and was positive for methamphetamines at that time. On exam, pt is breathing comfortably on NC. He appears to be off nicardipine gtt.Vitals an d labs reviewed and mostly unremarkable. BP remains slightly high with SBP 173 during exam. Pt is sit ting at edge of bed, having just finished dinner, he keeps dozing off every few seconds and abruptly awakens as he begins tipping forward. He is morbidly obese. ASSESSMENT: Acute hypoxic hypercapnic res piratory failureHypertensive emergencyAKIMethamphetamine abuseMorbid obesityPLAN:O2 via NC, BiPAP PRN Maintain spo2 >90% and PO2 >60 mmHgRecommend BiPAP/CPAP QHS d/t high likelihood of undiagnosed GANESH, f or which I recommend pt undergoes an outpatient sleep studyNicardipine gtt appears to have been weane d offCharted BPs are normal, but SBP was 173 during my exam. No PO antihypertensives currently ordere d. Will defer to bedside team.Pt is still receiving IV Lasix 40 BID. Consider decreasing dose/frequen cy d/t renal function.2D echo done, results pendingStrict I/O, daily weightsAvoid nephrotoxic agentsM onitor BUN, Cr, UOPPt will need to be counseled on weight loss and avoiding illicit drugs prior to di schargeInterventions Major-Hypertension - evaluation and management, Hypoxemia - evaluation and manag ement, Respiratory failure - evaluation and management
[2021-10-07] MEDS: Albuterol/Ipratropium 3.0-0.5 MG/3 ML Neb Soln NEB SCH ×6 (02:28→22:35)
[2021-10-07] MEDS: Furosemide 40 MG/4 ML VIAL IVPUSH SCH ×2 (12:54→20:14)
[2021-10-07] MEDS: Enoxaparin 40 MG/0.4 ML Syringe SUBCUT SCH ×2 (12:55→20:14)
--- NOTE | 2021-10-07 15:21 | PCM.PN ---
- General Info Date of Service: 10/07/21 - Review of Systems Systems Review Comment:: feeling better, shortness of breath is improving - Patient Data Vitals - Most Recent: Last Vital Signs Temp 36.4 C 10/07/21 04:00 Pulse 96 10/04/21 23:19 Resp 30 H 10/07/21 07:00 BP 182/118 H 10/07/21 07:00 Pulse Ox 95 10/07/21 07:00 Weight - Most Recent: 161.3 kg I&O - Last 24 Hours: Intake & Output 10/07/21 10/07/21 10/07/21 06:59 14:59 22:59 Intake Total 650 Output Total 2300 Balance -1650 Med Orders - Current: Current Medications Albuterol/Ipratropium (Albuterol/Ipratropium 3.0-0.5 Mg/3 Ml Neb Soln) 3 ml NEB Q4HRRT [facility] Last Admin: 10/07/21 10:28 Dose: Not Given Documented by: Amlodipine Besylate (Amlodipine 5 Mg Tab) 5 mg PO DAILY [facility] Enoxaparin Sodium (Enoxaparin 40 Mg/0.4 Ml Syringe) 40 mg SUBCUT Q12HR [facility] Last Admin: 10/07/21 12:55 Dose: 40 mg Documented by: Furosemide (Furosemide 40 Mg/4 Ml Vial) 40 mg IVPUSH Q12HR [facility] Last Admin: 10/07/21 12:54 Dose: 40 mg Documented by: Nicardipine HCl (Cardene In Ns 20 Mg/200 Ml) 20 mg in 200 mls @ 50 mls/hr IV TITRATE [facility]; Protocol Last Admin: 10/04/21 18:01 Dose: 50 mls/hr Documented by: Sodium Chloride (Sodium Chloride 0.9% 10 Ml Syringe) 10 ml FLUSH ASDIRECTED PRN PRN Reason: Keep Vein Open Last Admin: 10/04/21 09:46 Dose: 10 ml Documented by: Sodium Chloride (Sodium Chloride 0.9% 2.5 Ml Syringe) 2.5 ml FLUSH ASDIRECTED PRN PRN Reason: Keep Vein Open Last Admin: 10/04/21 09:48 Dose: 2.5 ml Documented by: Sodium Chloride (Sodium Chloride 0.65% Nasal [place] 45 Ml Bottle) 0 ml ASCENCION Q2H PRN PRN Reason: Dryness Last Admin: 10/06/21 09:22 Dose: 2 spray Documented by: Discontinued Medications Albuterol/Ipratropium (Albuterol/Ipratropium 3.0-0.5 Mg/3 Ml Neb Soln) 3 ml NEB ONETIME ONE Stop: 10/04/21 09:31 Last Admin: 10/04/21 09:39 Dose: 3 ml Documented by: Albuterol/Ipratropium (Albuterol/Ipratropium 3.0-0.5 Mg/3 Ml Neb Soln) 3 ml NEB ONETIME ONE Stop: 10/04/21 16:25 Last Admin: 10/04/21 17:32 Dose: 3 ml Documented by: Albuterol/Ipratropium (Albuterol/Ipratropium 3.0-0.5 Mg/3 Ml Neb Soln) 3 ml NEB ONETIME ONE Stop: 10/04/21 16:25 Last Admin: 10/04/21 17:32 Dose: 3 ml Documented by: Albuterol/Ipratropium (Albuterol/Ipratropium 3.0-0.5 Mg/3 Ml Neb Soln) 3 ml NEB Q2H [facility] Last Admin: 10/05/21 11:23 Dose: Not Given Documented by: Aspirin (Aspirin 81 Mg Tab.Chew) 324 mg PO ONETIME ONE Stop: 10/04/21 09:34 Last Admin: 10/04/21 09:45 Dose: 324 mg Documented by: Dexamethasone (Dexamethasone 10 Mg/Ml Sdv) 10 mg IVPUSH ONETIME ONE Stop: 10/04/21 09:31 Last Admin: 10/04/21 09:46 Dose: 10 mg Documented by: Furosemide (Furosemide 40 Mg/4 Ml Vial) 40 mg IVPUSH NOW ONE Stop: 10/04/21 09:34 Last Admin: 10/04/21 09:47 Dose: 40 mg Documented by: Furosemide (Furosemide 40 Mg/4 Ml Vial) 80 mg IVPUSH NOW ONE Stop: 10/04/21 16:22 Last Admin: 10/04/21 17:35 Dose: 80 mg Documented by: Nicardipine HCl (Cardenein Ns 40 Mg/200 Ml) 40 mg in 200 mls @ 25 mls/hr IV TITRATE [facility]; Protocol Iopamidol (Iopamidol 755 Mg/Ml 500 Ml Multipack Bottle) 100 ml IVPUSH ONETIME ONE Stop: 10/04/21 11:14 Last Admin: 10/04/21 11:14 Dose: 100 ml Documented by: Nitroglycerin (Nitroglycerin 2% Oint 1 Gm Ud Packet) 1 gm TOP ONETIME ONE Stop: 10/04/21 09:34 Last Admin: 10/04/21 09:40 Dose: 1 gm Documented by: - Exam General: Alert, Oriented Neck: Supple Lungs: Clear to Auscultation, Normal Respiratory Effort Cardiovascular: Regular Rate, Regular Rhythm GI/Abdominal Exam: Soft, Non-Tender, No Distention Extremities: Non-Tender, No Pedal Edema Skin: Warm, Dry, Intact Neurological: No New Focal Deficit - Patient Data Result Diagrams: 10/06/21 07:45 10/06/21 07:45 Sepsis Event Note - Evaluation Sepsis Screening Result: No Definite Risk - Focused Exam Vital Signs: Vital Signs Temp Resp BP Pulse Ox 10/07/21 07:00 30 H 182/118 H 95 10/07/21 06:00 28 H 174/102 H 93 L 10/07/21 05:00 15 136/99 H 89 L 10/07/21 04:00 36.4 C 24 H 194/98 H 99 - Problem List & Annotations (1) Acute respiratory failure with hypoxia and hypercarbia SNOMED Code(s): 153607427 Code(s): J96.01 - ACUTE RESPIRATORY FAILURE WITH HYPOXIA; J96.02 - ACUTE RESPIRATORY FAILURE WITH HYPERCAPNIA Status: Acute Current Visit: Yes (2) CHF (congestive heart failure) SNOMED Code(s): 56457262 Code(s): I50.9 - HEART FAILURE, UNSPECIFIED Status: Acute Current Visit: Yes (3) Chronic hypercapnic respiratory failure Status: Acute Current Visit: Yes (4) Methamphetamine abuse SNOMED Code(s): 581060286 Code(s): F15.10 - OTHER STIMULANT ABUSE, UNCOMPLICATED Status: Acute Current Visit: Yes (5) Morbid obesity SNOMED Code(s): 475736351 Code(s): E66.01 - MORBID (SEVERE) OBESITY DUE TO EXCESS CALORIES Status: Acute Current Visit: Yes - Problem List Review Problem List Initiated/Reviewed/Updated: Yes - My Orders Last 24 Hours: My Active Orders 10/06/21 18:40 Echo Comp wo Cont [US] Routine 10/07/21 11:35 CBC WITH AUTO DIFF [HEME] Routine COMPREHENSIVE METABOLIC PN,CMP [CHEM] Routine 10/07/21 15:30 amLODIPine [Norvasc] 5 mg PO DAILY - Plan Plan:: Acute on chronic respiratory failure with hypoxemia and hypercapnia likely from GANESH, and CHF Congestive heart failure continue IV lasix, Echocardiogram pending will start amlopidpine will need outpatient sleep study Will continue NC while awake and BIPAP while sleeping.
[2021-10-07 16:09] LABS: BLOOD UREA NITROGEN,BUN 30 mg/dL (7.0-18.0); CARBON DIOXIDE,CO2 36.9 mmol/L (21.0-32.0); CHLORIDE,CL 100 mmol/L (98-107); GLUCOSE RANDOM 149 mg/dL (74-106); POTASSIUM,K 4.3 mmol/L (3.5-5.1); SODIUM,NA 142 mmol/L (136-148)
[2021-10-07] MEDS: amLODIPine 5 MG Tab PO SCH (19:52)
[2021-10-08] MEDS: Albuterol/Ipratropium 3.0-0.5 MG/3 ML Neb Soln NEB SCH ×6 (01:56→22:06)
[2021-10-08] MEDS: Enoxaparin 40 MG/0.4 ML Syringe SUBCUT SCH ×2 (08:30→20:26)
[2021-10-08] MEDS: Furosemide 40 MG/4 ML VIAL IVPUSH SCH ×2 (08:30→20:27)
[2021-10-08] MEDS: amLODIPine 5 MG Tab PO SCH (08:30)
[2021-10-08] MEDS ORDERED: amLODIPine 5 MG Tab PO ONE (13:20)
--- NOTE | 2021-10-08 13:45 | ECHO ---
EXAM DATE: 10/04/21 PATIENT'S AGE: 56 The ECHO report has been scanned into [facility] and can be seen in this patient's EMR (Electronic Medical Record) under the REPORTS section. The report has also been scanned into PACS. YOLANDA
--- NOTE | 2021-10-08 14:18 | PCM.PN ---
- General Info Date of Service: 10/08/21 - Patient Data Vitals - Most Recent: Last Vital Signs Temp 36.0 C L 10/08/21 12:00 Pulse 96 10/04/21 23:19 Resp 22 H 10/08/21 13:00 BP 176/102 H 10/08/21 12:00 Pulse Ox 92 L 10/08/21 12:00 Weight - Most Recent: 154.7 kg I&O - Last 24 Hours: Intake & Output 10/07/21 10/08/21 10/08/21 22:59 06:59 14:59 Intake Total 825 250 420 Output Total 1067 642 4438 Balance -762 -402 -947 Lab Results Last 24 Hours: Laboratory Results - last 24 hr 10/07/21 10/07/21 Range/Units 15:05 15:05 WBC 9.37 (4.0-11.0) K/uL RBC 5.73 (4.50-5.90) M/uL Hgb 15.9 (13.0-17.0) g/dL Hct 53.2 H (38.0-50.0) % MCV 92.8 (80.0-98.0) fL MCH 27.7 (27.0-32.0) pg MCHC 29.9 L (31.0-37.0) g/dL RDW Std Deviation 50.0 (28.0-62.0) fl RDW Coeff of Abel 15 (11.0-15.0) % Plt Count 174 (150-400) K/uL MPV 11.10 (7.40-12.00) fL Neut % (Auto) 76.7 (48.0-80.0) % Lymph % (Auto) 14.1 L (16.0-40.0) % [place] % (Auto) 7.5 (0.0-15.0) % Eos % (Auto) 1.5 (0.0-7.0) % Baso % (Auto) 0.2 (0.0-1.5) % Neut # (Auto) 7.2 H (1.4-5.7) K/uL Lymph # (Auto) 1.3 (0.6-2.4) K/uL [place] # (Auto) 0.7 (0.0-0.8) K/uL Eos # (Auto) 0.1 (0.0-0.7) K/uL Baso # (Auto) 0.0 (0.0-0.1) K/uL Nucleated RBC % 0.0 /100WBC Nucleated RBCs # 0 K/uL Sodium 142 (136-148) mmol/L Potassium 4.3 (3.5-5.1) mmol/L Chloride 100 (98-107) mmol/L Carbon Dioxide 36.9 H (21.0-32.0) mmol/L BUN 30 H (7.0-18.0) mg/dL Creatinine 1.2 (0.8-1.3) mg/dL Est Cr Clr Drug Dosing 75.44 mL/min Estimated GFR (MDRD) > 60.0 ml/min Glucose 149 H (74-106) mg/dL Calcium 8.5 (8.5-10.1) mg/dL Total Bilirubin 0.9 (0.2-1.0) mg/dL AST 35 (15-37) IU/L ALT 36 (14-63) IU/L Alkaline Phosphatase 74 (46-116) U/L Total Protein 7.1 (6.4-8.2) g/dL Albumin 2.9 L (3.4-5.0) g/dL Globulin 4.2 H (2.6-4.0) g/dL Albumin/Globulin Ratio 0.7 L (0.9-1.6) Med Orders - Current: Current Medications Albuterol/Ipratropium (Albuterol/Ipratropium 3.0-0.5 Mg/3 Ml Neb Soln) 3 ml NEB Q4HRRT [facility] Last Admin: 10/08/21 13:55 Dose: 3 ml Documented by: Amlodipine Besylate (Amlodipine 5 Mg Tab) 5 mg PO DAILY [facility] Last Admin: 10/08/21 08:30 Dose: 5 mg Documented by: Enoxaparin Sodium (Enoxaparin 40 Mg/0.4 Ml Syringe) 40 mg SUBCUT Q12HR [facility] Last Admin: 10/08/21 08:30 Dose: 40 mg Documented by: Furosemide (Furosemide 40 Mg/4 Ml Vial) 40 mg IVPUSH Q12HR [facility] Last Admin: 10/08/21 08:30 Dose: 40 mg Documented by: Nicardipine HCl (Cardene In Ns 20 Mg/200 Ml) 20 mg in 200 mls @ 50 mls/hr IV TITRATE [facility]; Protocol Last Admin: 10/04/21 18:01 Dose: 50 mls/hr Documented by: Sodium Chloride (Sodium Chloride 0.9% 10 Ml Syringe) 10 ml FLUSH ASDIRECTED PRN PRN Reason: Keep Vein Open Last Admin: 10/04/21 09:46 Dose: 10 ml Documented by: Sodium Chloride (Sodium Chloride 0.9% 2.5 Ml Syringe) 2.5 ml FLUSH ASDIRECTED PRN PRN Reason: Keep Vein Open Last Admin: 10/04/21 09:48 Dose: 2.5 ml Documented by: Sodium Chloride (Sodium Chloride 0.65% Nasal [place] 45 Ml Bottle) 0 ml ASCENCION Q2H PRN PRN Reason: Dryness Last Admin: 10/06/21 09:22 Dose: 2 spray Documented by: Discontinued Medications Albuterol/Ipratropium (Albuterol/Ipratropium 3.0-0.5 Mg/3 Ml Neb Soln) 3 ml NEB ONETIME ONE Stop: 10/04/21 09:31 Last Admin: 10/04/21 09:39 Dose: 3 ml Documented by: Albuterol/Ipratropium (Albuterol/Ipratropium 3.0-0.5 Mg/3 Ml Neb Soln) 3 ml NEB ONETIME ONE Stop: 10/04/21 16:25 Last Admin: 10/04/21 17:32 Dose: 3 ml Documented by: Albuterol/Ipratropium (Albuterol/Ipratropium 3.0-0.5 Mg/3 Ml Neb Soln) 3 ml NEB ONETIME ONE Stop: 10/04/21 16:25 Last Admin: 10/04/21 17:32 Dose: 3 ml Documented by: Albuterol/Ipratropium (Albuterol/Ipratropium 3.0-0.5 Mg/3 Ml Neb Soln) 3 ml NEB Q2H [facility] Last Admin: 10/05/21 11:23 Dose: Not Given Documented by: Amlodipine Besylate (Amlodipine 5 Mg Tab) 5 mg PO ONETIME ONE Stop: 10/08/21 13:21 Aspirin (Aspirin 81 Mg Tab.Chew) 324 mg PO ONETIME ONE Stop: 10/04/21 09:34 Last Admin: 10/04/21 09:45 Dose: 324 mg Documented by: Dexamethasone (Dexamethasone 10 Mg/Ml Sdv) 10 mg IVPUSH ONETIME ONE Stop: 10/04/21 09:31 Last Admin: 10/04/21 09:46 Dose: 10 mg Documented by: Furosemide (Furosemide 40 Mg/4 Ml Vial) 40 mg IVPUSH NOW ONE Stop: 10/04/21 09:34 Last Admin: 10/04/21 09:47 Dose: 40 mg Documented by: Furosemide (Furosemide 40 Mg/4 Ml Vial) 80 mg IVPUSH NOW ONE Stop: 10/04/21 16:22 Last Admin: 10/04/21 17:35 Dose: 80 mg Documented by: Nicardipine HCl (Cardenein Ns 40 Mg/200 Ml) 40 mg in 200 mls @ 25 mls/hr IV TITRATE [facility]; Protocol Iopamidol (Iopamidol 755 Mg/Ml 500 Ml Multipack Bottle) 100 ml IVPUSH ONETIME ONE Stop: 10/04/21 11:14 Last Admin: 10/04/21 11:14 Dose: 100 ml Documented by: Nitroglycerin (Nitroglycerin 2% Oint 1 Gm Ud Packet) 1 gm TOP ONETIME ONE Stop: 10/04/21 09:34 Last Admin: 10/04/21 09:40 Dose: 1 gm Documented by: - Exam General: Alert, Oriented Neck: Supple Lungs: Clear to Auscultation Cardiovascular: Regular Rate, Regular Rhythm GI/Abdominal Exam: Soft, Non-Tender Extremities: Normal Inspection, Non-Tender Skin: Warm, Dry, Intact Neurological: No New Focal Deficit - Patient Data Lab Results Last 24 hrs: Laboratory Results - last 24 hr 10/07/21 10/07/21 Range/Units 15:05 15:05 WBC 9.37 (4.0-11.0) K/uL RBC 5.73 (4.50-5.90) M/uL Hgb 15.9 (13.0-17.0) g/dL Hct 53.2 H (38.0-50.0) % MCV 92.8 (80.0-98.0) fL MCH 27.7 (27.0-32.0) pg MCHC 29.9 L (31.0-37.0) g/dL RDW Std Deviation 50.0 (28.0-62.0) fl RDW Coeff of Abel 15 (11.0-15.0) % Plt Count 174 (150-400) K/uL MPV 11.10 (7.40-12.00) fL Neut % (Auto) 76.7 (48.0-80.0) % Lymph % (Auto) 14.1 L (16.0-40.0) % [place] % (Auto) 7.5 (0.0-15.0) % Eos % (Auto) 1.5 (0.0-7.0) % Baso % (Auto) 0.2 (0.0-1.5) % Neut # (Auto) 7.2 H (1.4-5.7) K/uL Lymph # (Auto) 1.3 (0.6-2.4) K/uL [place] # (Auto) 0.7 (0.0-0.8) K/uL Eos # (Auto) 0.1 (0.0-0.7) K/uL Baso # (Auto) 0.0 (0.0-0.1) K/uL Nucleated RBC % 0.0 /100WBC Nucleated RBCs # 0 K/uL Sodium 142 (136-148) mmol/L Potassium 4.3 (3.5-5.1) mmol/L Chloride 100 (98-107) mmol/L Carbon Dioxide 36.9 H (21.0-32.0) mmol/L BUN 30 H (7.0-18.0) mg/dL Creatinine 1.2 (0.8-1.3) mg/dL Est Cr Clr Drug Dosing 75.44 mL/min Estimated GFR (MDRD) > 60.0 ml/min Glucose 149 H (74-106) mg/dL Calcium 8.5 (8.5-10.1) mg/dL Total Bilirubin 0.9 (0.2-1.0) mg/dL AST 35 (15-37) IU/L ALT 36 (14-63) IU/L Alkaline Phosphatase 74 (46-116) U/L Total Protein 7.1 (6.4-8.2) g/dL Albumin 2.9 L (3.4-5.0) g/dL Globulin 4.2 H (2.6-4.0) g/dL Albumin/Globulin Ratio 0.7 L (0.9-1.6) Result Diagrams: 10/07/21 15:05 10/07/21 15:05 Sepsis Event Note - Evaluation Sepsis Screening Result: No Definite Risk - Focused Exam Vital Signs: Vital Signs Temp Resp BP BP Pulse Ox 10/08/21 13:00 22 H 10/08/21 12:00 36.0 C L 21 H 176/102 H 92 L 10/08/21 11:00 28 H 129/96 H 92 L 10/08/21 10:00 36.6 C 20 159/123 H 94 L 10/08/21 09:00 22 H 156/95 H 97 10/08/21 08:42 21 H 95 10/08/21 08:30 156/95 H 10/08/21 07:57 36.0 C L 23 H 146/98 H 95 10/08/21 07:00 20 159/101 H 90 L 10/08/21 06:00 24 H 165/103 H 96 10/08/21 05:00 24 H 146/107 H 92 L 10/08/21 04:00 35.7 C L 23 H 136/100 H 90 L 10/08/21 03:00 21 H 141/81 H 91 L - Problem List & Annotations (1) Acute respiratory failure with hypoxia and hypercarbia SNOMED Code(s): 666304202 Code(s): J96.01 - ACUTE RESPIRATORY FAILURE WITH HYPOXIA; J96.02 - ACUTE RESPIRATORY FAILURE WITH HYPERCAPNIA Status: Acute Current Visit: Yes (2) CHF (congestive heart failure) SNOMED Code(s): 04380997 Code(s): I50.9 - HEART FAILURE, UNSPECIFIED Status: Acute Current Visit: Yes (3) Chronic hypercapnic respiratory failure Status: Acute Current Visit: Yes (4) Methamphetamine abuse SNOMED Code(s): 579776861 Code(s): F15.10 - OTHER STIMULANT ABUSE, UNCOMPLICATED Status: Acute Current Visit: Yes (5) Morbid obesity SNOMED Code(s): 320039014 Code(s): E66.01 - MORBID (SEVERE) OBESITY DUE TO EXCESS CALORIES Status: Acute Current Visit: Yes - Problem List Review Problem List Initiated/Reviewed/Updated: Yes - My Orders Last 24 Hours: My Active Orders 10/07/21 15:30 amLODIPine [Norvasc] 5 mg PO DAILY 10/08/21 13:11 Transfer Patient (Change bed) [ADT] Routine - Plan Plan:: Acute on chronic respiratory failure with hypoxemia and hypercapnia likely from GANESH, and CHF Congestive heart failure continue IV lasix, Echocardiogram reports EF of 55-60% will start amlodipine will need outpatient sleep study Will continue to titrated down supplemental oxygen. continue BIPAP while sleeping.
[2021-10-09] MEDS: Albuterol/Ipratropium 3.0-0.5 MG/3 ML Neb Soln NEB SCH ×6 (01:43→21:25)
[2021-10-09] MEDS: amLODIPine 5 MG Tab PO SCH (08:43)
[2021-10-09] MEDS: Furosemide 40 MG/4 ML VIAL IVPUSH SCH ×2 (08:48→21:25)
[2021-10-09] MEDS: Enoxaparin 40 MG/0.4 ML Syringe SUBCUT SCH ×2 (08:48→21:25)
[2021-10-09 11:16] LABS: CARBON DIOXIDE,CO2 37.9 mmol/L (21.0-32.0); POTASSIUM,K 3.9 mmol/L (3.5-5.1)
--- NOTE | 2021-10-09 14:52 | PCM.PN ---
- General Info Date of Service: 10/09/21 - Review of Systems Systems Review Comment:: shortness of breath improving - Patient Data Vitals - Most Recent: Last Vital Signs Temp 36.3 C 10/09/21 11:44 Pulse 98 10/09/21 11:44 Resp 24 H 10/09/21 11:44 BP 137/71 10/09/21 11:44 Pulse Ox 89 L 10/09/21 11:44 Weight - Most Recent: 157.85 kg I&O - Last 24 Hours: Intake & Output 10/08/21 10/09/21 10/09/21 22:59 06:59 14:59 Intake Total 750 Output Total 1100 Balance -350 Lab Results Last 24 Hours: Laboratory Results - last 24 hr 10/09/21 10/09/21 Range/Units 10:32 10:32 WBC 10.82 (4.0-11.0) K/uL RBC 5.72 (4.50-5.90) M/uL Hgb 15.9 (13.0-17.0) g/dL Hct 51.8 H (38.0-50.0) % MCV 90.6 (80.0-98.0) fL MCH 27.8 (27.0-32.0) pg MCHC 30.7 L (31.0-37.0) g/dL RDW Std Deviation 48.7 (28.0-62.0) fl RDW Coeff of Abel 15 (11.0-15.0) % Plt Count 188 (150-400) K/uL MPV 11.10 (7.40-12.00) fL Neut % (Auto) 76.5 (48.0-80.0) % Lymph % (Auto) 12.8 L (16.0-40.0) % [place] % (Auto) 8.2 (0.0-15.0) % Eos % (Auto) 2.3 (0.0-7.0) % Baso % (Auto) 0.2 (0.0-1.5) % Neut # (Auto) 8.3 H (1.4-5.7) K/uL Lymph # (Auto) 1.4 (0.6-2.4) K/uL [place] # (Auto) 0.9 H (0.0-0.8) K/uL Eos # (Auto) 0.3 (0.0-0.7) K/uL Baso # (Auto) 0.0 (0.0-0.1) K/uL Nucleated RBC % 0.0 /100WBC Nucleated RBCs # 0 K/uL Sodium 140 (136-148) mmol/L Potassium 3.9 (3.5-5.1) mmol/L Chloride 100 (98-107) mmol/L Carbon Dioxide 37.9 H (21.0-32.0) mmol/L BUN 36 H (7.0-18.0) mg/dL Creatinine 1.4 H (0.8-1.3) mg/dL Est Cr Clr Drug Dosing 64.67 mL/min Estimated GFR (MDRD) 52.4 ml/min Glucose 105 (74-106) mg/dL Calcium 9.0 (8.5-10.1) mg/dL Med Orders - Current: Current Medications Albuterol/Ipratropium (Albuterol/Ipratropium 3.0-0.5 Mg/3 Ml Neb Soln) 3 ml NEB Q4HRRT [facility] Last Admin: 10/09/21 13:46 Dose: 3 ml Documented by: Amlodipine Besylate (Amlodipine 5 Mg Tab) 5 mg PO DAILY [facility] Last Admin: 10/09/21 08:43 Dose: 5 mg Documented by: Enoxaparin Sodium (Enoxaparin 40 Mg/0.4 Ml Syringe) 40 mg SUBCUT Q12HR [facility] Last Admin: 10/09/21 08:48 Dose: 40 mg Documented by: Furosemide (Furosemide 40 Mg/4 Ml Vial) 40 mg IVPUSH Q12HR [facility] Last Admin: 10/09/21 08:48 Dose: 40 mg Documented by: Nicardipine HCl (Cardene In Ns 20 Mg/200 Ml) 20 mg in 200 mls @ 50 mls/hr IV TITRATE [facility]; Protocol Last Admin: 10/04/21 18:01 Dose: 50 mls/hr Documented by: Sodium Chloride (Sodium Chloride 0.9% 10 Ml Syringe) 10 ml FLUSH ASDIRECTED PRN PRN Reason: Keep Vein Open Last Admin: 10/04/21 09:46 Dose: 10 ml Documented by: Sodium Chloride (Sodium Chloride 0.9% 2.5 Ml Syringe) 2.5 ml FLUSH ASDIRECTED PRN PRN Reason: Keep Vein Open Last Admin: 10/04/21 09:48 Dose: 2.5 ml Documented by: Sodium Chloride (Sodium Chloride 0.65% Nasal [place] 45 Ml Bottle) 0 ml ASCENCION Q2H PRN PRN Reason: Dryness Last Admin: 10/06/21 09:22 Dose: 2 spray Documented by: Discontinued Medications Albuterol/Ipratropium (Albuterol/Ipratropium 3.0-0.5 Mg/3 Ml Neb Soln) 3 ml NEB ONETIME ONE Stop: 10/04/21 09:31 Last Admin: 10/04/21 09:39 Dose: 3 ml Documented by: Albuterol/Ipratropium (Albuterol/Ipratropium 3.0-0.5 Mg/3 Ml Neb Soln) 3 ml NEB ONETIME ONE Stop: 10/04/21 16:25 Last Admin: 10/04/21 17:32 Dose: 3 ml Documented by: Albuterol/Ipratropium (Albuterol/Ipratropium 3.0-0.5 Mg/3 Ml Neb Soln) 3 ml NEB ONETIME ONE Stop: 10/04/21 16:25 Last Admin: 10/04/21 17:32 Dose: 3 ml Documented by: Albuterol/Ipratropium (Albuterol/Ipratropium 3.0-0.5 Mg/3 Ml Neb Soln) 3 ml NEB Q2H [facility] Last Admin: 10/05/21 11:23 Dose: Not Given Documented by: Amlodipine Besylate (Amlodipine 5 Mg Tab) 5 mg PO ONETIME ONE Stop: 10/08/21 13:21 Last Admin: 10/08/21 14:38 Dose: 5 mg Documented by: Aspirin (Aspirin 81 Mg Tab.Chew) 324 mg PO ONETIME ONE Stop: 10/04/21 09:34 Last Admin: 10/04/21 09:45 Dose: 324 mg Documented by: Dexamethasone (Dexamethasone 10 Mg/Ml Sdv) 10 mg IVPUSH ONETIME ONE Stop: 10/04/21 09:31 Last Admin: 10/04/21 09:46 Dose: 10 mg Documented by: Furosemide (Furosemide 40 Mg/4 Ml Vial) 40 mg IVPUSH NOW ONE Stop: 10/04/21 09:34 Last Admin: 10/04/21 09:47 Dose: 40 mg Documented by: Furosemide (Furosemide 40 Mg/4 Ml Vial) 80 mg IVPUSH NOW ONE Stop: 10/04/21 16:22 Last Admin: 10/04/21 17:35 Dose: 80 mg Documented by: Nicardipine HCl (Cardenein Ns 40 Mg/200 Ml) 40 mg in 200 mls @ 25 mls/hr IV TITRATE [facility]; Protocol Iopamidol (Iopamidol 755 Mg/Ml 500 Ml Multipack Bottle) 100 ml IVPUSH ONETIME ONE Stop: 10/04/21 11:14 Last Admin: 10/04/21 11:14 Dose: 100 ml Documented by: Nitroglycerin (Nitroglycerin 2% Oint 1 Gm Ud Packet) 1 gm TOP ONETIME ONE Stop: 10/04/21 09:34 Last Admin: 10/04/21 09:40 Dose: 1 gm Documented by: - Exam General: Alert, Oriented Neck: Supple Lungs: Clear to Auscultation, Normal Respiratory Effort Cardiovascular: Regular Rate, Regular Rhythm GI/Abdominal Exam: Normal Bowel Sounds, Soft, Non-Tender Extremities: Non-Tender, No Pedal Edema Skin: Warm, Dry, Intact Neurological: No New Focal Deficit - Patient Data Lab Results Last 24 hrs: Laboratory Results - last 24 hr 10/09/21 10/09/21 Range/Units 10:32 10:32 WBC 10.82 (4.0-11.0) K/uL RBC 5.72 (4.50-5.90) M/uL Hgb 15.9 (13.0-17.0) g/dL Hct 51.8 H (38.0-50.0) % MCV 90.6 (80.0-98.0) fL MCH 27.8 (27.0-32.0) pg MCHC 30.7 L (31.0-37.0) g/dL RDW Std Deviation 48.7 (28.0-62.0) fl RDW Coeff of Abel 15 (11.0-15.0) % Plt Count 188 (150-400) K/uL MPV 11.10 (7.40-12.00) fL Neut % (Auto) 76.5 (48.0-80.0) % Lymph % (Auto) 12.8 L (16.0-40.0) % [place] % (Auto) 8.2 (0.0-15.0) % Eos % (Auto) 2.3 (0.0-7.0) % Baso % (Auto) 0.2 (0.0-1.5) % Neut # (Auto) 8.3 H (1.4-5.7) K/uL Lymph # (Auto) 1.4 (0.6-2.4) K/uL [place] # (Auto) 0.9 H (0.0-0.8) K/uL Eos # (Auto) 0.3 (0.0-0.7) K/uL Baso # (Auto) 0.0 (0.0-0.1) K/uL Nucleated RBC % 0.0 /100WBC Nucleated RBCs # 0 K/uL Sodium 140 (136-148) mmol/L Potassium 3.9 (3.5-5.1) mmol/L Chloride 100 (98-107) mmol/L Carbon Dioxide 37.9 H (21.0-32.0) mmol/L BUN 36 H (7.0-18.0) mg/dL Creatinine 1.4 H (0.8-1.3) mg/dL Est Cr Clr Drug Dosing 64.67 mL/min Estimated GFR (MDRD) 52.4 ml/min Glucose 105 (74-106) mg/dL Calcium 9.0 (8.5-10.1) mg/dL Result Diagrams: 10/09/21 10:32 10/09/21 10:32 Sepsis Event Note - Evaluation Sepsis Screening Result: No Definite Risk - Focused Exam Vital Signs: Vital Signs Temp Pulse Resp BP BP Pulse Ox 10/09/21 11:44 36.3 C 98 24 H 137/71 89 L 10/09/21 08:43 132/76 10/09/21 07:32 36.6 C 86 22 H 133/79 94 L 10/09/21 04:00 35.7 C L 91 20 130/81 93 L - Problem List & Annotations (1) Acute respiratory failure with hypoxia and hypercarbia SNOMED Code(s): 610630602 Code(s): J96.01 - ACUTE RESPIRATORY FAILURE WITH HYPOXIA; J96.02 - ACUTE RESPIRATORY FAILURE WITH HYPERCAPNIA Status: Acute Current Visit: Yes (2) CHF (congestive heart failure) SNOMED Code(s): 98271465 Code(s): I50.9 - HEART FAILURE, UNSPECIFIED Status: Acute Current Visit: Yes (3) Chronic hypercapnic respiratory failure Status: Acute Current Visit: Yes (4) Methamphetamine abuse SNOMED Code(s): 852414595 Code(s): F15.10 - OTHER STIMULANT ABUSE, UNCOMPLICATED Status: Acute Current Visit: Yes (5) Morbid obesity SNOMED Code(s): 593031810 Code(s): E66.01 - MORBID (SEVERE) OBESITY DUE TO EXCESS CALORIES Status: Acute Current Visit: Yes - Problem List Review Problem List Initiated/Reviewed/Updated: Yes - My Orders Last 24 Hours: My Active Orders 10/10/21 05:11 BASIC METABOLIC PANEL,BMP [CHEM] AM CBC WITH AUTO DIFF [HEME] AM - Plan Plan:: Acute on chronic respiratory failure with hypoxemia and hypercapnia likely from GANESH, and CHF Congestive heart failure continue IV lasix, Echocardiogram reports EF of 55-60% will start amlodipine will need outpatient sleep study Will continue to titrated down supplemental oxygen. continue BIPAP while sleeping. Likely discharge home tomorrow
[2021-10-10] MEDS: Albuterol/Ipratropium 3.0-0.5 MG/3 ML Neb Soln NEB SCH ×6 (01:47→21:58)
[2021-10-10] MEDS: Sodium Chloride 0.65% Nasal Spray 45 ML Bottle NAS PRN (06:33)
[2021-10-10 06:54] LABS: CARBON DIOXIDE,CO2 36.6 mmol/L (21.0-32.0); POTASSIUM,K 3.9 mmol/L (3.5-5.1)
[2021-10-10] MEDS: Furosemide 40 MG/4 ML VIAL IVPUSH SCH ×2 (09:07→20:10)
[2021-10-10] MEDS: amLODIPine 5 MG Tab PO SCH (09:07)
[2021-10-10] MEDS: Enoxaparin 40 MG/0.4 ML Syringe SUBCUT SCH ×2 (09:08→20:10)
--- NOTE | 2021-10-10 12:39 | PCM.PN ---
- General Info Date of Service: 10/10/21 - Review of Systems Systems Review Comment:: shortness of breath is improving, but does not feel reading for discharge - Patient Data Vitals - Most Recent: Last Vital Signs Temp 36.4 C 10/10/21 12:00 Pulse 86 10/10/21 12:00 Resp 18 10/10/21 12:00 BP 138/74 10/10/21 12:00 Pulse Ox 92 L 10/10/21 12:00 Weight - Most Recent: 159.256 kg I&O - Last 24 Hours: Intake & Output 10/09/21 10/10/21 10/10/21 22:59 06:59 14:59 Intake Total 750 430 Output Total 500 520 Balance 250 -90 Lab Results Last 24 Hours: Laboratory Results - last 24 hr 10/10/21 10/10/21 Range/Units 05:34 05:34 WBC 9.76 (4.0-11.0) K/uL RBC 5.44 (4.50-5.90) M/uL Hgb 15.0 (13.0-17.0) g/dL Hct 49.0 (38.0-50.0) % MCV 90.1 (80.0-98.0) fL MCH 27.6 (27.0-32.0) pg MCHC 30.6 L (31.0-37.0) g/dL RDW Std Deviation 48.8 (28.0-62.0) fl RDW Coeff of Abel 15 (11.0-15.0) % Plt Count 186 (150-400) K/uL MPV 11.30 (7.40-12.00) fL Neut % (Auto) 70.7 (48.0-80.0) % Lymph % (Auto) 15.9 L (16.0-40.0) % Bay % (Auto) 9.6 (0.0-15.0) % Eos % (Auto) 3.5 (0.0-7.0) % Baso % (Auto) 0.3 (0.0-1.5) % Neut # (Auto) 6.9 H (1.4-5.7) K/uL Lymph # (Auto) 1.6 (0.6-2.4) K/uL Bay # (Auto) 0.9 H (0.0-0.8) K/uL Eos # (Auto) 0.3 (0.0-0.7) K/uL Baso # (Auto) 0.0 (0.0-0.1) K/uL Nucleated RBC % 0.0 /100WBC Nucleated RBCs # 0 K/uL Sodium 142 (136-148) mmol/L Potassium 3.9 (3.5-5.1) mmol/L Chloride 102 (98-107) mmol/L Carbon Dioxide 36.6 H (21.0-32.0) mmol/L BUN 40 H (7.0-18.0) mg/dL Creatinine 1.6 H (0.8-1.3) mg/dL Est Cr Clr Drug Dosing 56.58 mL/min Estimated GFR (MDRD) 44.9 ml/min Glucose 120 H (74-106) mg/dL Calcium 8.7 (8.5-10.1) mg/dL Med Orders - Current: Current Medications Albuterol/Ipratropium (Albuterol/Ipratropium 3.0-0.5 Mg/3 Ml Neb Soln) 3 ml NEB Q4HRRT [facility] Last Admin: 10/10/21 09:07 Dose: 3 ml Documented by: Amlodipine Besylate (Amlodipine 5 Mg Tab) 5 mg PO DAILY [facility] Last Admin: 10/10/21 09:07 Dose: 5 mg Documented by: Enoxaparin Sodium (Enoxaparin 40 Mg/0.4 Ml Syringe) 40 mg SUBCUT Q12HR [facility] Last Admin: 10/10/21 09:08 Dose: 40 mg Documented by: Furosemide (Furosemide 40 Mg/4 Ml Vial) 40 mg IVPUSH Q12HR [facility] Last Admin: 10/10/21 09:07 Dose: 40 mg Documented by: Nicardipine HCl (Cardene In Ns 20 Mg/200 Ml) 20 mg in 200 mls @ 50 mls/hr IV TITRATE [facility]; Protocol Last Admin: 10/04/21 18:01 Dose: 50 mls/hr Documented by: Sodium Chloride (Sodium Chloride 0.9% 10 Ml Syringe) 10 ml FLUSH ASDIRECTED PRN PRN Reason: Keep Vein Open Last Admin: 10/04/21 09:46 Dose: 10 ml Documented by: Sodium Chloride (Sodium Chloride 0.9% 2.5 Ml Syringe) 2.5 ml FLUSH ASDIRECTED PRN PRN Reason: Keep Vein Open Last Admin: 10/04/21 09:48 Dose: 2.5 ml Documented by: Sodium Chloride (Sodium Chloride 0.65% Nasal [place] 45 Ml Bottle) 0 ml ASCENCION Q2H PRN PRN Reason: Dryness Last Admin: 10/10/21 06:33 Dose: 2 spray Documented by: Discontinued Medications Albuterol/Ipratropium (Albuterol/Ipratropium 3.0-0.5 Mg/3 Ml Neb Soln) 3 ml NEB ONETIME ONE Stop: 10/04/21 09:31 Last Admin: 10/04/21 09:39 Dose: 3 ml Documented by: Albuterol/Ipratropium (Albuterol/Ipratropium 3.0-0.5 Mg/3 Ml Neb Soln) 3 ml NEB ONETIME ONE Stop: 10/04/21 16:25 Last Admin: 10/04/21 17:32 Dose: 3 ml Documented by: Albuterol/Ipratropium (Albuterol/Ipratropium 3.0-0.5 Mg/3 Ml Neb Soln) 3 ml NEB ONETIME ONE Stop: 10/04/21 16:25 Last Admin: 10/04/21 17:32 Dose: 3 ml Documented by: Albuterol/Ipratropium (Albuterol/Ipratropium 3.0-0.5 Mg/3 Ml Neb Soln) 3 ml NEB Q2H [facility] Last Admin: 10/05/21 11:23 Dose: Not Given Documented by: Amlodipine Besylate (Amlodipine 5 Mg Tab) 5 mg PO ONETIME ONE Stop: 10/08/21 13:21 Last Admin: 10/08/21 14:38 Dose: 5 mg Documented by: Aspirin (Aspirin 81 Mg Tab.Chew) 324 mg PO ONETIME ONE Stop: 10/04/21 09:34 Last Admin: 10/04/21 09:45 Dose: 324 mg Documented by: Dexamethasone (Dexamethasone 10 Mg/Ml Sdv) 10 mg IVPUSH ONETIME ONE Stop: 10/04/21 09:31 Last Admin: 10/04/21 09:46 Dose: 10 mg Documented by: Furosemide (Furosemide 40 Mg/4 Ml Vial) 40 mg IVPUSH NOW ONE Stop: 10/04/21 09:34 Last Admin: 12/05/21 09:47 Dose: 40 mg Documented by: Furosemide (Furosemide 40 Mg/4 Ml Vial) 80 mg IVPUSH NOW ONE Stop: 10/04/21 16:22 Last Admin: 10/04/21 17:35 Dose: 80 mg Documented by: Nicardipine HCl (Cardenein Ns 40 Mg/200 Ml) 40 mg in 200 mls @ 25 mls/hr IV TITRATE [facility]; Protocol Iopamidol (Iopamidol 755 Mg/Ml 500 Ml Multipack Bottle) 100 ml IVPUSH ONETIME ONE Stop: 10/04/21 11:14 Last Admin: 10/04/21 11:14 Dose: 100 ml Documented by: Nitroglycerin (Nitroglycerin 2% Oint 1 Gm Ud Packet) 1 gm TOP ONETIME ONE Stop: 10/04/21 09:34 Last Admin: 10/04/21 09:40 Dose: 1 gm Documented by: - Exam General: Alert, Oriented Neck: Supple Lungs: Clear to Auscultation, Normal Respiratory Effort Cardiovascular: Regular Rate, Regular Rhythm GI/Abdominal Exam: Soft, Non-Tender Extremities: Pedal Edema (+1) Skin: Warm, Dry, Intact Neurological: No New Focal Deficit - Patient Data Lab Results Last 24 hrs: Laboratory Results - last 24 hr 10/10/21 10/10/21 Range/Units 05:34 05:34 WBC 9.76 (4.0-11.0) K/uL RBC 5.44 (4.50-5.90) M/uL Hgb 15.0 (13.0-17.0) g/dL Hct 49.0 (38.0-50.0) % MCV 90.1 (80.0-98.0) fL MCH 27.6 (27.0-32.0) pg MCHC 30.6 L (31.0-37.0) g/dL RDW Std Deviation 48.8 (28.0-62.0) fl RDW Coeff of Abel 15 (11.0-15.0) % Plt Count 186 (150-400) K/uL MPV 11.30 (7.40-12.00) fL Neut % (Auto) 70.7 (48.0-80.0) % Lymph % (Auto) 15.9 L (16.0-40.0) % Bay % (Auto) 9.6 (0.0-15.0) % Eos % (Auto) 3.5 (0.0-7.0) % Baso % (Auto) 0.3 (0.0-1.5) % Neut # (Auto) 6.9 H (1.4-5.7) K/uL Lymph # (Auto) 1.6 (0.6-2.4) K/uL [place] # (Auto) 0.9 H (0.0-0.8) K/uL Eos # (Auto) 0.3 (0.0-0.7) K/uL Baso # (Auto) 0.0 (0.0-0.1) K/uL Nucleated RBC % 0.0 /100WBC Nucleated RBCs # 0 K/uL Sodium 142 (136-148) mmol/L Potassium 3.9 (3.5-5.1) mmol/L Chloride 102 (98-107) mmol/L Carbon Dioxide 36.6 H (21.0-32.0) mmol/L BUN 40 H (7.0-18.0) mg/dL Creatinine 1.6 H (0.8-1.3) mg/dL Est Cr Clr Drug Dosing 56.58 mL/min Estimated GFR (MDRD) 44.9 ml/min Glucose 120 H (74-106) mg/dL Calcium 8.7 (8.5-10.1) mg/dL Result Diagrams: 10/10/21 05:34 10/10/21 05:34 Sepsis Event Note - Evaluation Sepsis Screening Result: No Definite Risk - Focused Exam Vital Signs: Vital Signs Temp Pulse Resp BP BP BP Pulse Ox 10/10/21 12:00 36.4 C 86 18 138/74 92 L 10/10/21 09:07 111/74 10/10/21 08:00 36.6 C 101 H 18 111/74 93 L 10/10/21 03:00 36.4 C 95 18 125/73 93 L - Problem List & Annotations (1) Acute respiratory failure with hypoxia and hypercarbia SNOMED Code(s): 558863534 Code(s): J96.01 - ACUTE RESPIRATORY FAILURE WITH HYPOXIA; J96.02 - ACUTE RESPIRATORY FAILURE WITH HYPERCAPNIA Status: Acute Current Visit: Yes (2) CHF (congestive heart failure) SNOMED Code(s): 60216342 Code(s): I50.9 - HEART FAILURE, UNSPECIFIED Status: Acute Current Visit: Yes (3) Chronic hypercapnic respiratory failure Status: Acute Current Visit: Yes (4) Methamphetamine abuse SNOMED Code(s): 938290163 Code(s): F15.10 - OTHER STIMULANT ABUSE, UNCOMPLICATED Status: Acute Current Visit: Yes (5) Morbid obesity SNOMED Code(s): 681677362 Code(s): E66.01 - MORBID (SEVERE) OBESITY DUE TO EXCESS CALORIES Status: Acute Current Visit: Yes - Problem List Review Problem List Initiated/Reviewed/Updated: Yes - My Orders Last 24 Hours: My Active Orders 10/11/21 05:11 BASIC METABOLIC PANEL,BMP [CHEM] AM CBC WITH AUTO DIFF [HEME] AM - Plan Plan:: Acute on chronic respiratory failure with hypoxemia and hypercapnia likely from GANESH, and CHF Hypoxia: on 4 L NC Congestive heart failure continue IV lasix, Echocardiogram reports EF of 55-60% will continue amlodipine will need outpatient sleep study continue BIPAP while sleeping. Likely discharge home tomorrow
[2021-10-10] MEDS ORDERED: Acetaminophen 325 MG Tab PO PRN ×2 (15:46→15:48)
[2021-10-11] MEDS: Albuterol/Ipratropium 3.0-0.5 MG/3 ML Neb Soln NEB SCH ×3 (02:00→10:01)
[2021-10-11 08:33] LABS: CARBON DIOXIDE,CO2 36.5 mmol/L (21.0-32.0); POTASSIUM,K 4.1 mmol/L (3.5-5.1)
[2021-10-11] MEDS: Enoxaparin 40 MG/0.4 ML Syringe SUBCUT SCH (08:33)
[2021-10-11] MEDS: Furosemide 40 MG/4 ML VIAL IVPUSH SCH (08:33)
[2021-10-11] MEDS: amLODIPine 5 MG Tab PO SCH (08:33)
[2021-10-11 12:37] VITALS: BP 106/66; PULSE 94
--- NOTE | 2021-10-11 12:49 | PCM.DCSUM1 ---
Discharge Summary - Discharge Data Discharge Date: 10/11/21 Discharge Disposition: Home, Self-Care 01 Condition: Good - Referral to Home Health Primary Care Physician: PCP None - Discharge Diagnosis/Problem(s) (1) Acute respiratory failure with hypoxia and hypercarbia SNOMED Code(s): 497487316 ICD Code: J96.01 - ACUTE RESPIRATORY FAILURE WITH HYPOXIA; J96.02 - ACUTE RESPIRATORY FAILURE WITH HYPERCAPNIA Status: Acute Current Visit: Yes (2) CHF (congestive heart failure) SNOMED Code(s): 82529369 ICD Code: I50.9 - HEART FAILURE, UNSPECIFIED Status: Acute Current Visit: Yes (3) Chronic hypercapnic respiratory failure Status: Acute Current Visit: Yes (4) Methamphetamine abuse SNOMED Code(s): 168966853 ICD Code: F15.10 - OTHER STIMULANT ABUSE, UNCOMPLICATED Status: Acute Current Visit: Yes (5) Morbid obesity SNOMED Code(s): 828594150 ICD Code: E66.01 - MORBID (SEVERE) OBESITY DUE TO EXCESS CALORIES Status: Acute Current Visit: Yes - Patient Summary/Data Consults: Consultations 10/04/21 19:21 Respiratory Care Assess and Treatment [CONS] Routine Hospital Course: Zaheer Recinos is a 56-year-old morbidly obese male with a h/o HTN, COPD, noncompliance with medications who presented to the ED by private means due for shortness of breath. Over the past several weeks he has notice increasing shortness of breath and difficulty staying awake. He has been using methamp heteamine to stay awake. He was noted to be hypoxic and lethargic on admission with elevated blood pressures. CT angio was negative for PE, but did reported dilated pulmonary artery, CXR reported cardiomegaly, Echocardiogram reported EF of 55%. He was admitted for CHF and suspect obstructive sleep apnea. HE was diuresed with IV lasix and placed on BIPAP. HE was on Nicardipine drip briefly for his elevated blood pressures. He was weened of BIPAP. He was started on amlodpine for better blood pressure control. He reports he is ready for discharged today. He is to follow up with Dr. Martinez. It is recommended that he has an outpatient sleep study as he likely has obstructive sleep apnea. He was discharged with home oxygen 2 L NC to use with activity and at night. - Patient Instructions Diet: Heart Healthy Diet, Low Sodium Fluid Restriction: 2000 mL Activity: As Tolerated Other/Special Instructions: Weight yourself daily, report increase in 1 Lb in a day and 3 Lb in a week to your doctor as this may be signs of increase fluid build up and the need to take more lasix. Please follow up with Dr. Martinez next week. You will need a sleep study to evaluate for sleep apnea. - Discharge Plan Prescriptions/Med Rec: Furosemide [Lasix] 40 mg PO DAILY #30 tablet amLODIPine [Norvasc] 5 mg PO DAILY #30 tablet Home Medications: Home Meds Furosemide [Lasix] 40 mg PO DAILY #30 tablet 10/11/21 [Rx] amLODIPine [Norvasc] 5 mg PO DAILY #30 tablet 10/11/21 [Rx] Oxygen Flow Rate (L/min): 2 Patient Handouts: Heart Failure, Self-Care, [id number], Heart Failure, Diagnosis, [id number] Referrals: Kenan Martinez MD [Physician] - 10/15/21 1:30 pm - Discharge Summary/Plan Comment DC Time >30 min.: No Total # of Minutes for Discharge Time: 20 - Patient Data Vitals - Most Recent: Last Vital Signs Temp 36.3 C 10/11/21 11:00 Pulse 94 10/11/21 11:00 Resp 20 10/11/21 11:00 BP 106/66 10/11/21 11:00 Pulse Ox 96 10/11/21 11:00 Weight - Most Recent: 112.99 kg I&O - Last 24 hours: Intake & Output 10/10/21 10/11/21 10/11/21 22:59 06:59 14:59 Intake Total 600 750 Output Total 300 500 Balance 300 250 Lab Results - Last 24 hrs: Laboratory Results - last 24 hr 10/11/21 10/11/21 Range/Units 06:52 06:52 WBC 10.40 (4.0-11.0) K/uL RBC 5.42 (4.50-5.90) M/uL Hgb 14.9 (13.0-17.0) g/dL Hct 49.2 (38.0-50.0) % MCV 90.8 (80.0-98.0) fL MCH 27.5 (27.0-32.0) pg MCHC 30.3 L (31.0-37.0) g/dL RDW Std Deviation 49.8 (28.0-62.0) fl RDW Coeff of Abel 15 (11.0-15.0) % Plt Count 201 (150-400) K/uL MPV 11.70 (7.40-12.00) fL Neut % (Auto) 66.8 (48.0-80.0) % Lymph % (Auto) 19.1 (16.0-40.0) % Leon % (Auto) 10.2 (0.0-15.0) % Eos % (Auto) 3.6 (0.0-7.0) % Baso % (Auto) 0.3 (0.0-1.5) % Neut # (Auto) 7.0 H (1.4-5.7) K/uL Lymph # (Auto) 2.0 (0.6-2.4) K/uL Leon # (Auto) 1.1 H (0.0-0.8) K/uL Eos # (Auto) 0.4 (0.0-0.7) K/uL Baso # (Auto) 0.0 (0.0-0.1) K/uL Nucleated RBC % 0.0 /100WBC Nucleated RBCs # 0 K/uL Sodium 142 (136-148) mmol/L Potassium 4.1 (3.5-5.1) mmol/L Chloride 100 (98-107) mmol/L Carbon Dioxide 36.5 H (21.0-32.0) mmol/L BUN 39 H (7.0-18.0) mg/dL Creatinine 1.4 H (0.8-1.3) mg/dL Est Cr Clr Drug Dosing 64.67 mL/min Estimated GFR (MDRD) 52.4 ml/min Glucose 102 (74-106) mg/dL Calcium 8.7 (8.5-10.1) mg/dL Med Orders - Current: Current Medications Acetaminophen (Acetaminophen 325 Mg Tab) 650 mg PO Q6H PRN PRN Reason: Pain Last Admin: 10/10/21 17:12 Dose: 650 mg Documented by: Albuterol/Ipratropium (Albuterol/Ipratropium 3.0-0.5 Mg/3 Ml Neb Soln) 3 ml NEB Q4HRRT [facility] Last Admin: 10/11/21 10:01 Dose: 3 ml Documented by: Amlodipine Besylate (Amlodipine 5 Mg Tab) 5 mg PO DAILY [facility] Last Admin: 10/11/21 08:33 Dose: 5 mg Documented by: Enoxaparin Sodium (Enoxaparin 40 Mg/0.4 Ml Syringe) 40 mg SUBCUT Q12HR [facility] Last Admin: 10/11/21 08:33 Dose: 40 mg Documented by: Furosemide (Furosemide 40 Mg/4 Ml Vial) 40 mg IVPUSH Q12HR [facility] Last Admin: 10/11/21 08:33 Dose: 40 mg Documented by: Nicardipine HCl (Cardene In Ns 20 Mg/200 Ml) 20 mg in 200 mls @ 50 mls/hr IV TITRATE [facility]; Protocol Last Admin: 10/04/21 18:01 Dose: 50 mls/hr Documented by: Sodium Chloride (Sodium Chloride 0.9% 10 Ml Syringe) 10 ml FLUSH ASDIRECTED PRN PRN Reason: Keep Vein Open Last Admin: 10/04/21 09:46 Dose: 10 ml Documented by: Sodium Chloride (Sodium Chloride 0.9% 2.5 Ml Syringe) 2.5 ml FLUSH ASDIRECTED PRN PRN Reason: Keep Vein Open Last Admin: 10/04/21 09:48 Dose: 2.5 ml Documented by: Sodium Chloride (Sodium Chloride 0.65% Nasal [place] 45 Ml Bottle) 0 ml ASCENCION Q2H PRN PRN Reason: Dryness Last Admin: 10/10/21 06:33 Dose: 2 spray Documented by: Discontinued Medications Albuterol/Ipratropium (Albuterol/Ipratropium 3.0-0.5 Mg/3 Ml Neb Soln) 3 ml NEB ONETIME ONE Stop: 10/04/21 09:31 Last Admin: 10/04/21 09:39 Dose: 3 ml Documented by: Albuterol/Ipratropium (Albuterol/Ipratropium 3.0-0.5 Mg/3 Ml Neb Soln) 3 ml NEB ONETIME ONE Stop: 10/04/21 16:25 Last Admin: 10/04/21 17:32 Dose: 3 ml Documented by: Albuterol/Ipratropium (Albuterol/Ipratropium 3.0-0.5 Mg/3 Ml Neb Soln) 3 ml NEB ONETIME ONE Stop: 10/04/21 16:25 Last Admin: 10/04/21 17:32 Dose: 3 ml Documented by: Albuterol/Ipratropium (Albuterol/Ipratropium 3.0-0.5 Mg/3 Ml Neb Soln) 3 ml NEB Q2H [facility] Last Admin: 10/05/21 11:23 Dose: Not Given Documented by: Amlodipine Besylate (Amlodipine 5 Mg Tab) 5 mg PO ONETIME ONE Stop: 10/08/21 13:21 Last Admin: 10/08/21 14:38 Dose: 5 mg Documented by: Aspirin (Aspirin 81 Mg Tab.Chew) 324 mg PO ONETIME ONE Stop: 10/04/21 09:34 Last Admin: 10/04/21 09:45 Dose: 324 mg Documented by: Dexamethasone (Dexamethasone 10 Mg/Ml Sdv) 10 mg IVPUSH ONETIME ONE Stop: 10/04/21 09:31 Last Admin: 10/04/21 09:46 Dose: 10 mg Documented by: Furosemide (Furosemide 40 Mg/4 Ml Vial) 40 mg IVPUSH NOW ONE Stop: 10/04/21 09:34 Last Admin: 10/04/21 09:47 Dose: 40 mg Documented by: Furosemide (Furosemide 40 Mg/4 Ml Vial) 80 mg IVPUSH NOW ONE Stop: 10/04/21 16:22 Last Admin: 10/04/21 17:35 Dose: 80 mg Documented by: Nicardipine HCl (Cardenein Ns 40 Mg/200 Ml) 40 mg in 200 mls @ 25 mls/hr IV TITRATE [facility]; Protocol Iopamidol (Iopamidol 755 Mg/Ml 500 Ml Multipack Bottle) 100 ml IVPUSH ONETIME ONE Stop: 10/04/21 11:14 Last Admin: 10/04/21 11:14 Dose: 100 ml Documented by: Nitroglycerin (Nitroglycerin 2% Oint 1 Gm Ud Packet) 1 gm TOP ONETIME ONE Stop: 10/04/21 09:34 Last Admin: 10/04/21 09:40 Dose: 1 gm Documented by:
== END 2021-10-11 14:35 | disposition home or self-care (01) | DRG 291 ==
LOC: MW.ED 09:09 → MW.ICU 12:55 → MW.MS 20:54 → MW.ICU 21:50 → MW.MS 10-08 17:30
PROVIDERS: ADMIT Hospitalist; ATTEND Hospitalist
DX: I11.0 Hypertensive heart disease with heart failure (principal); J96.01 Acute respiratory failure with hypoxia; I50.33 Acute on chronic diastolic (congestive) heart failure; J96.22 Acute and chronic respiratory failure with hypercapnia; E87.2 Acidosis; N17.9 Acute kidney failure, unspecified; I16.1 Hypertensive emergency; Z68.42 Body mass index [BMI] 45.0-49.9, adult; F15.10 Other stimulant abuse, uncomplicated; Z20.822 Contact with and (suspected) exposure to COVID-19; E66.01 Morbid (severe) obesity due to excess calories; F90.9 Attention-deficit hyperactivity disorder, unspecified type; G47.33 Obstructive sleep apnea (adult) (pediatric); J43.9 Emphysema, unspecified; Z91.14 Patient's other noncompliance with medication regimen; Z87.891 Personal history of nicotine dependence; Z90.49 Acquired absence of other specified parts of digestive tract
CPT/HCPCS: 0240U; 36415; 36600; 71045; 71045-26; 71275; 71275-26; 80048; 80053; 80305-QW; 80307; 82803; 83880; 84443; 84484; 85025; 85379; 93005; 93306; 94640; 94660; 96374; 96375; 99285-25; A9270-GY; J1100; J1650; J1940; J7620-GY; Q9967; U0002

== ENCOUNTER 2021-10-14 16:32 | Emergency (ER) | payer SELFPAY ==
[2021-10-14] MEDS ORDERED: Nitroglycerin 0.4 MG Tab.SL SL ONE (17:01)
[2021-10-14] MEDS ORDERED: Furosemide 40 MG/4 ML VIAL IVPUSH ONE (17:01)
[2021-10-14] MEDS ORDERED: Albuterol/Ipratropium 3.0-0.5 MG/3 ML Neb Soln NEB ONE (17:05)
[2021-10-14] MEDS ORDERED: methylPREDNISolone Sodium Succinate 125 MG/2 ML SDV IVPUSH ONE (17:06)
--- NOTE | 2021-10-14 17:10 | EDM.PDOC ---
ED HPI GENERAL MEDICAL PROBLEM - General Chief Complaint: Respiratory Problem Stated Complaint: LOW OXYGEN Time Seen by Provider: 10/14/21 16:55 - History of Present Illness INITIAL COMMENTS - FREE TEXT/NARRATIVE: 56-year-old male presents to the emergency department he was sent in from the primary care doctor's office for hypoxia and concern for CHF. Patient with a recent admission for similar hypoxia. Patient with a history of GANESH, copd, chf, new home O2. Apparently the patient did not wear his oxygen that he was sent home with the primary care doctor's office. Furthermore he did not mention to the primary care doctor that he was on home oxygen. Patient actually feels better than when he left the hospital recently. Patient denies any cough or fever or productive sputum. No history of blood clots. Bilateral leg swelling without 1 leg swollen more than the other. No recent travel or injury or cancer or surgery. Patient is not vaccinated against Covid. Patient is not complaining of any chest pain - Related Data Allergies Allergy/AdvReac Type Severity Reaction Status Date / Time No Known Allergies Allergy Verified 10/14/21 16:51 Home Meds: Home Meds Furosemide [Lasix] 40 mg PO DAILY #30 tablet 10/11/21 [Rx] amLODIPine [Norvasc] 5 mg PO DAILY #30 tablet 10/11/21 [Rx] Past Medical History - Past Health History Medical/Surgical History: Denies Medical/Surgical History HEENT History: Reports: None Cardiovascular History: Reports: Hypertension Respiratory History: Reports: Asthma, SOB Musculoskeletal History: Reports: Fracture Neurological History: Reports: None Psychiatric History: Reports: ADHD Endocrine/Metabolic History: Reports: None Hematologic History: Reports: None Immunologic History: Reports: None Oncologic (Cancer) History: Reports: None Dermatologic History: Reports: None - Infectious Disease History Infectious Disease History: Reports: Chicken Pox - Past Surgical History Head Surgeries/Procedures: Reports: None HEENT Surgical History: Reports: None GI Surgical History: Reports: Appendectomy Endocrine Surgical History: Reports: None Neurological Surgical History: Reports: None Oncologic Surgical History: Reports: None Dermatological Surgical History: Reports: None Social & Family History - Family History Family Medical History: No Pertinent Family History - Caffeine Use Caffeine Use: Reports: None - Recreational Drug Use Recreational Drug Use: Yes Recreational Drug Type: Reports: Methamphetamine Recreational Drug Use Frequency: Daily ED ROS GENERAL - Review of Systems Review Of Systems: Comprehensive ROS is negative, except as noted in HPI. ED EXAM, GENERAL - Physical Exam Exam: See Below Free Text/Narrative:: CONSTITUTIONAL: well appearing in no acute distress SKIN: Warm, dry, and intact without rash HENT: Normocephalic, atraumatic, PULMONARY: clear to ausculation bilaterally. No rales, rhonchi, wheezing CARDIOVASCULAR: regular rate, No murmur, rubs, or gallops GASTROINTESTINAL: soft, nondistended, nontender NEUROLOGIC: normal speech, II-XII intact. light touch/5/5 power equal and symmetric in upper and lower extremities without deficit MUSCULOSKELETAL: no gross deformities, atraumatic bilateral pitting edema. No leg swelling worse on 1 side to the other PSYCHIATRIC: normal mood and affect #1 Interpretation Time: 17:02 EKG Interpretation Comments: 90, normal sinus rhythm, left axis deviation, nonspecific ST/T findings Course - Vital Signs Text/Narrative:: Differential diagnosis: CHF, obstructive sleep apnea, COPD, PE, ACS, other Patient presents as outlined above. The primary care doctor contact me and sent the patient in for concern for CHF. Patient does have a very large pitting edema in his lower extremities and increased jugular venous distention. I spoke to the hospitalist that saw the patient during last admission and he thinks that there is a large component of obstructive sleep apnea and hypoventilation syndrome. Patient had a similar presentation during last hospitalization and CT was negative for pulmonary embolism. I did give Lasix here in the emergency department because did appear the patient had CHF. The BNP was not remarkably elevated. The hospitalist states that he saw increasing BUN to creatinine ratio is increasing creatinine he thought he reached the extent possible for rapid diuresis as an inpatient and thus sent the patient home on oxygen. Apparently the patient did not wear the oxygen to his primary care doctor's office because he did not know if it would be okay when I was out in the cold. Furthermore he did not tell the primary care doctor that he was sent home on oxygen. When asked the patient how he feels he states he actually feels better than when he left the hospital. That being said when he went to and from the bathroom he did have some tachypnea. Since the patient's oxygen level is low and he is still tachypneic the plan was is to bring the patient in the hospital [facility] him overnight to ensure that he continues to look well. Patient at this time is signing out AGAINST MEDICAL ADVICE. He is alert and oriented, understands the risks of significant morbidity and mortality, is able to discuss illustrating understanding, has capacity make his own decisions and is signing out AGAINST MEDICAL ADVICE Last Recorded V/S: Last Vital Signs Temp 37.1 C 10/14/21 16:52 Pulse 94 10/14/21 17:56 Resp 20 10/14/21 17:56 BP 162/103 H 10/14/21 17:56 Pulse Ox 93 L 10/14/21 17:56 - Orders/Labs/Meds Labs: Laboratory Tests 10/14/21 10/14/21 10/14/21 Range/Units 17:11 17:15 17:15 WBC 10.10 (4.0-11.0) K/uL RBC 5.22 (4.50-5.90) M/uL Hgb 14.3 (13.0-17.0) g/dL Hct 47.4 (38.0-50.0) % MCV 90.8 (80.0-98.0) fL MCH 27.4 (27.0-32.0) pg MCHC 30.2 L (31.0-37.0) g/dL RDW Std Deviation 48.0 (28.0-62.0) fl RDW Coeff of Abel 14 (11.0-15.0) % Plt Count 212 (150-400) K/uL MPV 11.60 (7.40-12.00) fL Neut % (Auto) 66.4 (48.0-80.0) % Lymph % (Auto) 21.5 (16.0-40.0) % Clarke % (Auto) 8.3 (0.0-15.0) % Eos % (Auto) 3.5 (0.0-7.0) % Baso % (Auto) 0.3 (0.0-1.5) % Neut # (Auto) 6.7 H (1.4-5.7) K/uL Lymph # (Auto) 2.2 (0.6-2.4) K/uL Clarke # (Auto) 0.8 (0.0-0.8) K/uL Eos # (Auto) 0.4 (0.0-0.7) K/uL Baso # (Auto) 0.0 (0.0-0.1) K/uL Nucleated RBC % 0.0 /100WBC Nucleated RBCs # 0 K/uL APTT 25.6 (18.6-31.3) SEC VBG pH 7.38 (7.31-7.41) VBG pCO2 63 H (41-51) mmHG VBG pO2 60 mmHG VBG HCO3 38 H (23-28) mEq/L VBG Total CO2 34 H (24-29) mmol/L VBG Base Excess 9.9 H (-2.0-3.0) Sodium (136-148) mmol/L Potassium (3.5-5.1) mmol/L Chloride (98-107) mmol/L Carbon Dioxide (21.0-32.0) mmol/L BUN (7.0-18.0) mg/dL Creatinine (0.8-1.3) mg/dL Est Cr Clr Drug Dosing mL/min Estimated GFR (MDRD) ml/min Glucose (74-106) mg/dL Calcium (8.5-10.1) mg/dL Total Bilirubin (0.2-1.0) mg/dL AST (15-37) IU/L ALT (14-63) IU/L Alkaline Phosphatase (46-116) U/L Troponin I (0.000-0.056) ng/mL B-Natriuretic Peptide (<100) PG/ML Total Protein (6.4-8.2) g/dL Albumin (3.4-5.0) g/dL Globulin (2.6-4.0) g/dL Albumin/Globulin Ratio (0.9-1.6) Urine Opiates Screen (NEGATIVE) Ur Oxycodone Screen (NEGATIVE) Urine Methadone Screen (NEGATIVE) Ur Barbiturates Screen (NEGATIVE) Ur Phencyclidine Scrn (NEGATIVE) Ur Amphetamine Screen (NEGATIVE) U Methamphetamines Scrn (NEGATIVE) U Benzodiazepines Scrn (NEGATIVE) U Cocaine Metab Screen (NEGATIVE) U Marijuana (THC) Screen (NEGATIVE) SARS-CoV-2 RNA (HERRERA) (NEGATIVE) 10/14/21 10/14/21 10/14/21 Range/Units 17:15 17:15 17:15 WBC (4.0-11.0) K/uL RBC (4.50-5.90) M/uL Hgb (13.0-17.0) g/dL Hct (38.0-50.0) % MCV (80.0-98.0) fL MCH (27.0-32.0) pg MCHC (31.0-37.0) g/dL RDW Std Deviation (28.0-62.0) fl RDW Coeff of Abel (11.0-15.0) % Plt Count (150-400) K/uL MPV (7.40-12.00) fL Neut % (Auto) (48.0-80.0) % Lymph % (Auto) (16.0-40.0) % Clarke % (Auto) (0.0-15.0) % Eos % (Auto) (0.0-7.0) % Baso % (Auto) (0.0-1.5) % Neut # (Auto) (1.4-5.7) K/uL Lymph # (Auto) (0.6-2.4) K/uL Clarke # (Auto) (0.0-0.8) K/uL Eos # (Auto) (0.0-0.7) K/uL Baso # (Auto) (0.0-0.1) K/uL Nucleated RBC % /100WBC Nucleated RBCs # K/uL APTT (18.6-31.3) SEC VBG pH (7.31-7.41) VBG pCO2 (41-51) mmHG VBG pO2 mmHG VBG HCO3 (23-28) mEq/L VBG Total CO2 (24-29) mmol/L VBG Base Excess (-2.0-3.0) Sodium 144 (136-148) mmol/L Potassium 3.9 (3.5-5.1) mmol/L Chloride 105 (98-107) mmol/L Carbon Dioxide 34.4 H (21.0-32.0) mmol/L BUN 33 H (7.0-18.0) mg/dL Creatinine 1.4 H (0.8-1.3) mg/dL Est Cr Clr Drug Dosing 64.67 mL/min Estimated GFR (MDRD) 52.4 ml/min Glucose 112 H (74-106) mg/dL Calcium 9.2 (8.5-10.1) mg/dL Total Bilirubin 0.2 (0.2-1.0) mg/dL AST 21 (15-37) IU/L ALT 39 (14-63) IU/L Alkaline Phosphatase 95 (46-116) U/L Troponin I < 0.050 (0.000-0.056) ng/mL B-Natriuretic Peptide 104 H (<100) PG/ML Total Protein 7.2 (6.4-8.2) g/dL Albumin 2.8 L (3.4-5.0) g/dL Globulin 4.4 H (2.6-4.0) g/dL Albumin/Globulin Ratio 0.6 L (0.9-1.6) Urine Opiates Screen (NEGATIVE) Ur Oxycodone Screen (NEGATIVE) Urine Methadone Screen (NEGATIVE) Ur Barbiturates Screen (NEGATIVE) Ur Phencyclidine Scrn (NEGATIVE) Ur Amphetamine Screen (NEGATIVE) U Methamphetamines Scrn (NEGATIVE) U Benzodiazepines Scrn (NEGATIVE) U Cocaine Metab Screen (NEGATIVE) U Marijuana (THC) Screen (NEGATIVE) SARS-CoV-2 RNA (HERRERA) NEGATIVE (NEGATIVE) 10/14/21 Range/Units 18:00 WBC (4.0-11.0) K/uL RBC (4.50-5.90) M/uL Hgb (13.0-17.0) g/dL Hct (38.0-50.0) % MCV (80.0-98.0) fL MCH (27.0-32.0) pg MCHC (31.0-37.0) g/dL RDW Std Deviation (28.0-62.0) fl RDW Coeff of Abel (11.0-15.0) % Plt Count (150-400) K/uL MPV (7.40-12.00) fL Neut % (Auto) (48.0-80.0) % Lymph % (Auto) (16.0-40.0) % Clarke % (Auto) (0.0-15.0) % Eos % (Auto) (0.0-7.0) % Baso % (Auto) (0.0-1.5) % Neut # (Auto) (1.4-5.7) K/uL Lymph # (Auto) (0.6-2.4) K/uL Clarke # (Auto) (0.0-0.8) K/uL Eos # (Auto) (0.0-0.7) K/uL Baso # (Auto) (0.0-0.1) K/uL Nucleated RBC % /100WBC Nucleated RBCs # K/uL APTT (18.6-31.3) SEC VBG pH (7.31-7.41) VBG pCO2 (41-51) mmHG VBG pO2 mmHG VBG HCO3 (23-28) mEq/L VBG Total CO2 (24-29) mmol/L VBG Base Excess (-2.0-3.0) Sodium (136-148) mmol/L Potassium (3.5-5.1) mmol/L Chloride (98-107) mmol/L Carbon Dioxide (21.0-32.0) mmol/L BUN (7.0-18.0) mg/dL Creatinine (0.8-1.3) mg/dL Est Cr Clr Drug Dosing mL/min Estimated GFR (MDRD) ml/min Glucose (74-106) mg/dL Calcium (8.5-10.1) mg/dL Total Bilirubin (0.2-1.0) mg/dL AST (15-37) IU/L ALT (14-63) IU/L Alkaline Phosphatase (46-116) U/L Troponin I (0.000-0.056) ng/mL B-Natriuretic Peptide (<100) PG/ML Total Protein (6.4-8.2) g/dL Albumin (3.4-5.0) g/dL Globulin (2.6-4.0) g/dL Albumin/Globulin Ratio (0.9-1.6) Urine Opiates Screen NEGATIVE (NEGATIVE) Ur Oxycodone Screen NEGATIVE (NEGATIVE) Urine Methadone Screen NEGATIVE (NEGATIVE) Ur Barbiturates Screen NEGATIVE (NEGATIVE) Ur Phencyclidine Scrn NEGATIVE (NEGATIVE) Ur Amphetamine Screen NEGATIVE (NEGATIVE) U Methamphetamines Scrn NEGATIVE (NEGATIVE) U Benzodiazepines Scrn NEGATIVE (NEGATIVE) U Cocaine Metab Screen NEGATIVE (NEGATIVE) U Marijuana (THC) Screen NEGATIVE (NEGATIVE) SARS-CoV-2 RNA (HERRERA) (NEGATIVE) Meds: Medications Discontinued Medications Generic Name Dose Route Start Last Admin Trade Name Freq PRN Reason Stop Dose Admin Albuterol/Ipratropium 3 ml 10/14/21 17:05 10/14/21 17:23 Albuterol/Ipratropium 3.0-0.5 Mg/3 Ml Neb Soln NEB 10/14/21 17:06 3 ml ONETIME ONE Administration Furosemide 80 mg 10/14/21 17:01 10/14/21 17:23 Furosemide 40 Mg/4 Ml Vial IVPUSH 10/14/21 17:02 80 mg NOW ONE Administration Methylprednisolone Sodium Succinate 125 mg 10/14/21 17:06 10/14/21 17:23 Methylprednisolone Sodium Succinate 125 Mg/2 Ml Sdv IVPUSH 10/14/21 17:07 125 mg ONETIME ONE Administration Nitroglycerin 0.4 mg 10/14/21 17:01 10/14/21 17:23 Nitroglycerin 0.4 Mg Tab.Sl SL 10/14/21 17:02 0.4 mg ONETIME ONE Administration Departure - Departure Time of Disposition: 19:00 Disposition: Against Medical Advice 07 Condition: Good Clinical Impression: Dyspnea, Hypoxia, Hypoventilation associated with obesity syndrome - Discharge Information Instructions: Shortness of Breath, Adult, [id number] Referrals: Kenan Martinez MD [Primary Care Provider] - Forms: ED Department Discharge Additional Instructions: Please use your oxygen at home. Follow-up with your primary care doctor tomorrow for reevaluation. Wear your oxygen and tell him that you were sent home with oxygen when he left the hospital. Return for any change or worsening condition or interval shortness of breath or if you change your mind and would like to be admitted to the hospital. Sepsis Event Note (ED) - Evaluation Sepsis Screening Result: No Definite Risk
[2021-10-14 17:52] LABS: BLOOD UREA NITROGEN,BUN 33 mg/dL (7.0-18.0); CARBON DIOXIDE,CO2 34.4 mmol/L (21.0-32.0); CHLORIDE,CL 105 mmol/L (98-107); GLUCOSE RANDOM 112 mg/dL (74-106); POTASSIUM,K 3.9 mmol/L (3.5-5.1); SODIUM,NA 144 mmol/L (136-148)
[2021-10-14 17:57] VITALS: BP 162/103; PULSE 94
--- NOTE | 2021-10-14 18:40 | CR ---
INDICATION: Chest pain. TECHNIQUE: Chest 1 view. COMPARISON: CT of the chest, 10/04/2021. Chest one-view, 10/04/2021. FINDINGS: Cardiovascular and mediastinum: Cardiomegaly, which may be exaggerated by portable technique. Mediastinum is otherwise within normal limits. Pulmonary vasculature is distinct. Lungs and pleural space: Lungs are clear. No sign of infiltrate or mass. No sign of pleural effusion. No pneumothorax. Bones and soft tissues: No significant findings. IMPRESSION: There is no acute airspace disease. Dictated by Shemar Hobbs MD @ 10/14/2021 6:39:09 PM (Electronically Signed)
== END 2021-10-14 19:06 | disposition left against medical advice (07) ==
LOC: MW.ED 16:32
DX: R09.02 Hypoxemia (principal); R06.00 Dyspnea, unspecified; E66.9 Obesity, unspecified; Z68.43 Body mass index [BMI] 50.0-59.9, adult; I10 Essential (primary) hypertension; J45.909 Unspecified asthma, uncomplicated; Z79.899 Other long term (current) drug therapy; Z20.822 Contact with and (suspected) exposure to COVID-19
CPT/HCPCS: 36415; 71045; 80053; 80305; 82803; 83880; 84484; 85025; 85730; 87635; 93005; 96374; 96375; 99285; A9270; J1940; J2930; J7620-GY; U0002

== ENCOUNTER 2022-09-10 17:17 | Emergency (ER) | payer SELFPAY ==
[2022-09-10] MEDS ORDERED: Sodium Chloride 0.9% 1,000 ML IV ONE (18:12)
[2022-09-10] MEDS ORDERED: Ondansetron 4 MG/2 ML SDV IVPUSH ONE (18:13)
[2022-09-10] MEDS ORDERED: Morphine 4 MG/ML Syringe IVPUSH ONE (18:13)
[2022-09-10] MEDS ORDERED: amLODIPine 5 MG Tab PO ONE (18:21)
[2022-09-10 18:57] LABS: CARBON DIOXIDE,CO2 32.6 mmol/L (21.0-32.0); POTASSIUM,K 4.4 mmol/L (3.5-5.1)
[2022-09-10 20:49] VITALS: BP 198/126; PULSE 94
== END 2022-09-10 20:49 | disposition home or self-care (01) ==
LOC: MW.ED 17:17
DX: R10.9 Unspecified abdominal pain (principal); N18.9 Chronic kidney disease, unspecified; I10 Essential (primary) hypertension; Z91.14 Patient's other noncompliance with medication regimen; Z79.899 Other long term (current) drug therapy; Z90.49 Acquired absence of other specified parts of digestive tract
CPT/HCPCS: 36415; 74176; 80053; 81001; 85025; 99284; A9270; J7030

== ENCOUNTER 2022-10-09 17:43 | Emergency (ER) | payer SELFPAY | END 2022-10-09 21:00 | disposition left against medical advice (07) | LOC: MW.ED 17:43 | DX: Z53.21 Procedure and treatment not carried out due to patient leaving prior to being seen by health care provider (principal) ==

== ENCOUNTER 2023-07-11 10:06 | Emergency (ER) | payer SELFPAY ==
[2023-07-11] MEDS ORDERED: Sodium Chloride 0.9% 2.5 ML Syringe FLUSH PRN (11:11)
[2023-07-11] MEDS ORDERED: Sodium Chloride 0.9% 10 ML Syringe FLUSH PRN (11:11)
[2023-07-11] MEDS ORDERED: Magnesium Sulfate/Water 2 GM in Premix Bag 1 BAG IV ONE (11:13)
[2023-07-11] MEDS ORDERED: Albuterol/Ipratropium 3.0-0.5 MG/3 ML Neb Soln NEB ONE (11:13)
[2023-07-11] MEDS ORDERED: Albuterol 0.083% 2.5 MG/3 ML Neb Soln NEB ONE ×2 (11:13→12:44)
[2023-07-11] MEDS ORDERED: Nitroglycerin 0.4 MG Tab.SL SL PRN (11:14)
[2023-07-11] MEDS ORDERED: methylPREDNISolone Sodium Succinate 125 MG/2 ML SDV IVPUSH ONE (11:14)
[2023-07-11 11:45] LABS: BASE EXCESS VENOUS 5.1 (-2.0-3.0); BASOPHILS PERCENT AUTO 0.3 % (0.0-1.5); BICARBONATE,VENOUS 36 mEq/L (23-28); EOSINOPHILS ABSOLUTE AUTO 0.2 K/uL (0.0-0.7); HEMATOCRIT 53.6 % (38.0-50.0); LYMPHOCYTES ABSOLUTE AUTO 1.6 K/uL (0.6-2.4); LYMPHOCYTES PERCENT AUTO 16.1 % (16.0-40.0); MEAN CORPUSCULAR HEMOGLOBIN 28.2 pg (27.0-32.0); MEAN CORPUSCULAR HGB CONC 29.9 g/dL (31.0-37.0); MEAN CORPUSCULAR VOLUME 94.5 fL (80.0-98.0); MONOCYTES ABSOLUTE AUTO 0.8 K/uL (0.0-0.8); MONOCYTES PERCENT AUTO 8.1 % (0.0-15.0); NEUTROPHILS ABSOLUTE AUTO 7.2 K/uL (1.4-5.7); NEUTROPHILS PERCENT AUTO 73.5 % (48.0-80.0); NRBC ABSOLUTE 0 K/uL; PCO2 VENOUS 84 mmHG (41-51); PH,VENOUS 7.24 (7.31-7.41); PLATELET COUNT,PLT 184 K/uL (150-400); RED BLOOD CELL COUNT 5.67 M/uL (4.50-5.90)
[2023-07-11 11:46] LABS: PO2 VENOUS < 30 mmHG
[2023-07-11 12:03] LABS: CORONAVIRUS COVID-19 NAA NEGATIVE (NEGATIVE); INFLUENZA A NAA NEGATIVE (NEGATIVE); INFLUENZA B NAA NEGATIVE (NEGATIVE)
[2023-07-11 12:25] LABS: A/G RATIO 0.7 (0.9-1.6); ALBUMIN 3.4 g/dL (3.4-5.0); BILIRUBIN TOTAL 0.3 mg/dL (0.2-1.0); CALCIUM 8.9 mg/dL (8.5-10.1); CARBON DIOXIDE,CO2 33.8 mmol/L (21.0-32.0); CREATININE 1.4 mg/dL (0.8-1.3); EST CRCL DRUG DOSING (CG) 63.13 mL/min; POTASSIUM,K 5.3 mmol/L (3.5-5.1); PROTEIN TOTAL,TP 8.1 g/dL (6.4-8.2)
[2023-07-11 12:26] LABS: LACTIC ACID 0.7 mmol/L (0.4-2.0)
[2023-07-11 12:38] LABS: BASE EXCESS ARTERIAL 2.6 (-2.0-3.0); BICARBONATE,ARTERIAL 34 mEq/L (22-26); PCO2 ARTERIAL 84 mmHG (35-45); PO2 ARTERIAL 70 mmHG (80-105)
[2023-07-11] MEDS ORDERED: Furosemide 40 MG/4 ML VIAL IVPUSH ONE (12:45)
[2023-07-11] MEDS ORDERED: Nitroglycerin/D5W 25 MG/250 ML BOTTLE IV SCH (13:15)
[2023-07-11] MEDS ORDERED: LORazepam 2 MG/ML SDV ONE ×2 (13:54→15:45)
[2023-07-11 14:39] LABS: BASE EXCESS ARTERIAL 3.9 (-2.0-3.0); BICARBONATE,ARTERIAL 35 mEq/L (22-26); PCO2 ARTERIAL 84 mmHG (35-45); PO2 ARTERIAL 72 mmHG (80-105)
[2023-07-11] MEDS ORDERED: LORazepam 2 MG/ML SDV IVPUSH ONE (16:00)
[2023-07-11 16:34] VITALS: BP 163/93; PULSE 82
[2023-07-11 16:51] LABS: BASE EXCESS ARTERIAL 5.8 (-2.0-3.0); BICARBONATE,ARTERIAL 36 mEq/L (22-26); PCO2 ARTERIAL 79 mmHG (35-45); PO2 ARTERIAL 62 mmHG (80-105)
[2023-07-11 17:34] LABS: BICARBONATE,ARTERIAL 36 mEq/L (22-26); PCO2 ARTERIAL 77 mmHG (35-45); PO2 ARTERIAL 80 mmHG (80-105)
[2023-07-11] MEDS ORDERED: Ketamine 500 mg/10 ML MDV IV ONE ×2 (17:34→17:58)
[2023-07-11] MEDS ORDERED: fentaNYL/Normal Saline 2,500 MCG in Premix Bag 1 BAG IV STA (17:35)
[2023-07-11] MEDS ORDERED: Rocuronium 50 MG/5 ML Vial IV ONE ×2 (17:35→17:55)
[2023-07-11] MEDS ORDERED: propofoL 100 ML IV SCH (17:45)
[2023-07-11] MEDS ORDERED: Rocuronium 100 MG/10 ML MDV IVPUSH ONE (17:55)
== END 2023-07-11 18:48 ==
LOC: MW.ED 10:06
DX: J96.01 Acute respiratory failure with hypoxia (principal); J96.02 Acute respiratory failure with hypercapnia; G93.40 Encephalopathy, unspecified; I16.0 Hypertensive urgency; I11.0 Hypertensive heart disease with heart failure; I50.9 Heart failure, unspecified; J45.909 Unspecified asthma, uncomplicated; Z20.822 Contact with and (suspected) exposure to COVID-19
CPT/HCPCS: 0240U; 31500; 36415; 36600; 51702; 70450; 71045; 80053; 82803; 83605; 83880; 84484; 85025; 93005; 94640; 94660; 96365; 96366; 96367; 96375; 99285; J1940; J2060; J2704; J2930; J3475; J3490; 93010; 99291; 99292; J7620-GY